=== PATIENT | male | born 1975 | race Caucasian/White ===

== ENCOUNTER 2016-09-29 16:42 | Emergency (ER) | END 2016-09-29 20:36 | disposition home or self-care (01) | DX: R10.9 Unspecified abdominal pain (principal); R11.10 Vomiting, unspecified; R19.7 Diarrhea, unspecified; F17.210 Nicotine dependence, cigarettes, uncomplicated | CPT/HCPCS: 74176; 80053; 80306; 81003; 83690; 85025; J1885; J2270; J2405; J7030 ==

== ENCOUNTER 2016-10-01 23:25 | Emergency (ER) | payer MEDICAID ==
[~2016-10-01] VITALS: Ht 177.8 cm; Wt 77.5 kg
[~2016-10-01 23:25] MED LIST: ONDA4TAB14 PO; PANT40TA3 PO
[2016-10-01 23:29] VITALS: Ht 177.8 cm; Wt 77.5 kg
[2016-10-02] MEDS ORDERED: ONDANSETRON 4 MG INJ IV STA (00:16)
[2016-10-02] MEDS ORDERED: morphine 4 MG/ML VIAL IV STA (00:16)
[2016-10-02] MEDS ORDERED: SOD CHLORIDE 0.9% 1,000 ML IV STA (00:16)
--- NOTE | 2016-10-02 00:40 | ERD ---
ER Documentation Chief Complaint Date/Time DATE: 10/02/16 TIME: 00:38 Chief Complaint periumbilical pain radaiting to back x 2 days HPI 41-year-old male presents to emergency department for complaints on periumbilical area into the back or 2 days, patient was seen here recently for the same problem. Patient describes the pain as sharp pain, 8/10 scale, radiates from periumbilical to flank area. Patient denies any nausea or vomiting. Patient denies any diarrhea. Patient denies hematuria or dysuria. Patient denies any fever or chills. ROS All systems reviewed and are negative except as per history of present illness. Medications Home Meds Active Scripts Ondansetron (Ondansetron Odt) 4 Mg Tab.rapdis, 4 MG PO Q8 Y for NAUSEA AND/OR VOMITING, #30 TAB Prov:GERSON AN NP 10/02/16 Phenazopyridine Hcl* (Pyridium*) 200 Mg Tab, 200 MG PO TID Y for URINARY PAIN, # 6 TAB Prov:GERSON AN NP 10/02/16 Hydrocodone/Acetaminophen ([place] 5-325 Tablet) 1 Each Tablet, 1 TAB PO Q6H Y for PAIN, #20 TAB Prov:GERSON AN NP 10/02/16 Ondansetron (Ondansetron Odt) 4 Mg Tab.rapdis, 4 MG PO Q6H Y for NAUSEA AND/OR VOMITING, #10 TAB Prov:TOSIN DIAZ MD 09/29/16 Pantoprazole* (Protonix*) 40 Mg Tablet., 40 MG PO DAILY, #20 TAB Prov:TOSIN DIAZ MD 09/29/16 Discontinued Reported Medications Omeprazole* (Omeprazole*) 20 Mg Capsule.dr, 20 MG PO DAILY, CAP 01/16/15 Discontinued Scripts Ondansetron (Ondansetron Odt) 4 Mg Tab.rapdis, 4 MG PO Q6H Y for NAUSEA AND/OR VOMITING, #10 TAB Prov:ALEX LERNER 08/11/16 Hydrocodone/Acetaminophen ([place] 10-325 Tablet) 1 Each Tablet, 1 TAB PO Q6H Y for PAIN, #7 TAB Prov:ALEX LERNER 08/11/16 Sucralfate* (Carafate*) 1 Gm Tab, 1 GM PO QID, #60 TAB Prov:ALEX LERNER 08/11/16 Ondansetron Hcl* (Zofran*) 4 Mg Tablet, 4 MG PO Q6H for NAUSEA AND/OR VOMITING, #10 TAB Prov:RIGO DANIEL NP 06/28/16 Famotidine* (Pepcid*) 20 Mg Tablet, 20 MG PO BID for 7 Days, TAB Prov:RIGO DANIEL NP 06/28/16 Ondansetron Hcl* (Zofran* ODT) 4 mg -ODT Tab.disper, 4 MG PO Q8 Y for NAUSEA AND /OR VOMITING, #30 TAB Prov:GERSON AN NP 05/16/15 Dicyclomine Hcl* (Bentyl*) 20 Mg Tablet, 20 MG PO QID, #20 TAB Prov:GERSON AN NP 05/16/15 Ondansetron Hcl* (Zofran* ODT) 4 mg -ODT Tab.disper, 4 MG PO Q6 Y for NAUSEA AND /OR VOMITING, #30 TAB Prov:RAY GARCIA MD 04/23/15 Hydrocodone Bit-Acetaminophen* ([place]*) 10-325 Mg Tablet, 1 TAB PO Q6 Y for PAIN , #7 TAB Prov:RAY GARCIA MD 04/23/15 Ibuprofen* (Motrin*) 600 Mg Tab, 600 MG PO Q6H Y for PAIN AND OR ELEVATED TEMP, #30 Prov:RAY GARCIA MD 04/23/15 Allergies Allergies: Coded Allergies: sulfamethoxazole (Verified Allergy, Mild, HIVES, 09/29/16) trimethoprim (Verified Allergy, Mild, HIVES, 09/29/16) PMhx/Soc History of Surgery: No Anesthesia Reaction: No Hx Neurological Disorder: No Hx Respiratory Disorders: No Hx Cardiac Disorders: No Hx Psychiatric Problems: No Hx Miscellaneous Medical Probl: Yes (GERD, ALCOHOL ABUSE) Hx Alcohol Use: Yes Hx Substance Use: No Hx Tobacco Use: Yes FmHx Family History: No coronary disease, No diabetes, No other Physical Exam Vitals Vital Signs Date Time Temp Pulse Resp B/P Pulse Ox O2 Delivery O2 Flow Rate FiO2 10/02/16 03:27 98.3 77 18 131/77 99 Room Air 10/01/16 23:29 98.3 108 20 157/80 100 Physical Exam GENERAL: The patient is well developed and appropriate for usual state of health, in no apparent distress. CHEST: Clear to auscultation bilaterally. There are no rales, wheezes or rhonchi. HEART: Regular rate and rhythm. No murmurs, clicks, rubs or gallops. No S3 or S4. ABDOMEN: Soft, nontender and nondistended. Good bowel sounds. No rebound or guarding. No gross peritonitis. No gross organomegaly or masses. No Rodriguez sign or McBurney point tenderness. BACK: No midline or flank tenderness. EXTREMITIES: Equal pulses bilaterally. There is no peripheral clubbing, cyanosis or edema. No focal swelling or erythema. Full range of motion. Grossly neurovascularly intact. NEURO: Alert and oriented. Cranial nerves 2-12 intact. Motor strength in all 4 extremities with 5/5 strength. Sensation grossly intact. Normal speech and gait. SKIN: There is no apparent rash or petechia. The skin is warm and dry. HEMATOLOGIC AND LYMPHATIC: There is no evidence of excessive bruising or lymphedema. No gross cervical, axillary, or inguinal lymphadenopathy. Result Diagram: 10/02/165410/02/16 0055 Results 24 hrs Laboratory Tests Test 10/02/16 00:55 Alanine Aminotransferase (ALT/SGPT) 30IU/L Albumin 4.2g/dl Albumin/Globulin Ratio 1.23 Alkaline Phosphatase 111IU/L Anion Gap 17 Aspartate Amino Transf (AST/SGOT) 25IU/L Basophils # 0.010^3/ul Basophils % 0.4% Blood Urea Nitrogen 3mg/dl Calcium Level 8.8mg/dl Carbon Dioxide Level 27mmol/L Chloride Level 101mmol/L Creatinine 0.65mg/dl Direct Bilirubin 0.00mg/dl Eosinophils # 0.310^3/ul Eosinophils % 3.6% Globulin 3.40g/dl Glucose Level 97mg/dl Hematocrit 43.9% Hemoglobin 15.1g/dl Indirect Bilirubin 0.7mg/dl Lipase 36U/L Lymphocytes # 3.110^3/ul Lymphocytes % 32.6% Mean Corpuscular Hemoglobin 30.6pg Mean Corpuscular Hemoglobin Concent 34.4g/dl Mean Corpuscular Volume 89.0fl Mean Platelet Volume 10.6fl Monocytes # 0.610^3/ul Monocytes % 6.8% Neutrophils # 5.310^3/ul Neutrophils % 56.3% Nucleated Red Blood Cells # 0.010^3/ul Nucleated Red Blood Cells % 0.0/100WBC Platelet Count 04239^3/UL Potassium Level 3.5mmol/L Red Blood Count 4.9310^6/ul Red Cell Distribution Width 12.0% Sodium Level 141mmol/L Total Bilirubin 0.7mg/dl Total Protein 7.6g/dl Urine Bilirubin NEGATIVE Urine Clarity CLEAR Urine Color LT. YELLOW Urine Glucose NEGATIVE% Urine Hemoglobin TRACE Urine Ketones NEGATIVE Urine Leukocyte Esterase NEGATIVE Urine Microscopic RBC 0-2/HPF Urine Microscopic WBC 0-2/HPF Urine Nitrite NEGATIVE Urine Specific [place] <=1.005 Urine Squamous Epithelial Cells OCCASIONAL Urine Total Protein NEGATIVE Urine Urobilinogen 0.2 E.U./dL Urine pH 6.0 White Blood Count 9.510^3/ul Current Medications Medications (Trade) Dose Ordered Sig/[place] Route PRN Reason Start Time Stop Time Status Last Admin Dose Admin Sodium Chloride (NS) 1,000 ml @ 1,000 mls/hr Q1H STAT IV 10/02/16 00:16 10/02/16 01:15 DC 10/02/16 01:12 Morphine Sulfate (morphine) 4 mg ONCE STAT IV 10/02/16 00:16 10/02/16 00:17 DC 10/02/16 01:12 Ondansetron HCl 4 mg 4 mg ONCE STAT IV 10/02/16 00:16 10/02/16 00:17 DC 10/02/16 01:12 Sodium Chloride (NS) 100 ml @ ud STK-MED ONCE .ROUTE 10/02/16 01:23 10/02/16 01:24 DC 10/02/16 01:39 Iohexol (Omnipaque 300mg/ ml) 150 ml STK-MED ONCE .ROUTE 10/02/16 01:23 10/02/16 01:24 DC 10/02/16 01:39 Ketorolac Tromethamine (Toradol) 30 mg ONCE STAT IV 10/02/16 02:38 10/02/16 02:39 DC 10/02/16 02:46 Patient was given medication for pain here in emergency department, after treatment, patient verbalized feeling much better. Patient's pain is improved.Patient was given Zofran here in the emergency department. After treatment, patient was able to tolerate po fluids here in the emergency department without any vomiting. There is no signs and symptoms of dehydration. Normal saline IV bolus was given here in emergency department for rehydration, patient tolerated IV fluids. PROCEDURE: CT ABDOMEN/PELVIS WITH CONTRAST CLINICAL INDICATION: 41-year-old male with abdominal pain. TECHNIQUE: The study was performed utilizing a GE [employer] VCT 64-slice CT scanner. Direct axial sections were obtained through the abdomen and pelvis with the use of 100 cc of Omnipaque-300 nonionic intravenous contrast material. Sagittal and coronal reformations were obtained. Automated exposure control and iterative reconstruction techniques were utilized for this examination. The images were reviewed on a PACS workstation. CTD/vol = 8.3 mGy; Total Exam DLP = 522.5 mGy-cm. COMPARISON: CT abdomen/pelvis September 29, 2016. FINDINGS: The lung bases are unremarkable. There is no evidence for significant pleural effusion. The liver has a normal size and contour without focal areas of abnormal density or contrast enhancement. No intrahepatic nor extrahepatic biliary ductal dilatation is seen. The gallbladder demonstrates no wall thickening nor pericholecystic fluid. No biliary stones are evident. The pancreas is without areas of abnormal attenuation or contrast enhancement. This spleen is identified and has a normal size without abnormal density or contrast enhancement. The adrenal glands are unremarkable. The kidneys are functional bilaterally without focal abnormal density. There is mild bilateral prominence of the renal collecting system with perinephric infiltration but without evidence for deepak obstructive uropathy or nephroureterolithiasis. The urinary bladder contains urine. There is a small umbilical hernia with an opening of 9 x 10 mm containing fat. There is no evidence for bowel obstruction. There are a few small diverticula within the sigmoid colon without surrounding inflammatory changes. The appendix is visualized and is without edema or surrounding inflammatory reaction. There is no significant free fluid. The aortoiliac vessels are without aneurysmal dilatation. The osseous structures are intact. IMPRESSION: 1. Mild prominence of the renal collecting system with perinephric infiltration but without deepak obstructive uropathy or nephroureterolithiasis. 2. No CT evidence for appendicitis. 3. Minimal sigmoid diverticulosis. .Raza Stack MD, MD Date Time Electronically viewed and signed by .Raza Stack MD, MD on 10/02/2016 02:26 .M/ CC: GERSON AN NP Procedures/MDM Medical Decision Making: Patient's flank pain abdominal pain nonspecific at this time, possibly passed a stone. There is low suspicion for abdominal emergencies at this time. Patients abdominal exam is normal at this time. Patients radiology exam does not show any abdominal emergencies at this time. There is low suspicion for appendicitis, cholecystitis, abdominal aortic aneurysms or peritonitis at this time. There is low suspicion for sepsis. Patient appears well and is hemodynamically stable. Disposition: Home. Condition: Stable Prescription [place], Zofran, Pyridium Instructions: Patient is advised to take medications as prescribed. Patient is advised to rest, increase fluid intake and do brat diet for next 1-2 days and progress as tolerated. Patient is advised that if symptoms are worse, severe abdominal pain, uncontrolled vomiting, high fever, severe flank pain, worst signs and symptoms, to return to the emergency department immediately. Otherwise, patient can follow up with primary care doctor in 5-7 days. Departure Diagnosis: Primary Impression: Abdominal pain Abdominal location: periumbilical Qualified Code: R10.33 - Periumbilical abdominal pain Condition: Stable Patient Instructions: Abdominal Pain Additional Instructions: Patient is advised to take medications as prescribed. Patient is advised to rest, increase fluid intake and do brat diet for next 1-2 days and progress as tolerated. Patient is advised that if symptoms are worse, severe abdominal pain , uncontrolled vomiting, high fever, severe flank pain, worst signs and symptoms , to return to the emergency department immediately. Otherwise, patient can follow up with primary care doctor in 5-7 days. GERSON AN NP Oct 02, 2016 00:40
[2016-10-02] MEDS ORDERED: IOHEXOL 300MG/ML 150 ML BTL ONE (01:23)
[2016-10-02] MEDS ORDERED: SOD CHLORIDE 0.9% 100 ML ONE (01:23)
[2016-10-02 01:25] LABS: ADD UMIC YES; URINE BILIRUBIN (Dip) NEGATIVE (NEGATIVE); URINE BLOOD (Dip) TRACE (NEGATIVE); URINE COLOR LT. YELLOW (YELLOW); URINE GLUCOSE (Dip) NEGATIVE (NEGATIVE); URINE KETONES (Dip) NEGATIVE (NEGATIVE); URINE LEUKOCYTE ESTERASE (Dip) NEGATIVE (NEGATIVE); URINE NITRITE (Dip) NEGATIVE (NEGATIVE); URINE UROBILINOGEN (Dip) 0.2 E.U./dL (0.1-1.0)
[2016-10-02 01:30] LABS: ALBUMIN 4.2 g/dl (3.3-4.9)
[2016-10-02 01:31] LABS: POTASSIUM 3.5 mmol/L (3.5-5.1)
[2016-10-02 01:33] LABS: ALBUMIN/GLOBULIN RATIO 1.23; BILIRUBIN,INDIRECT 0.7 mg/dl (0-1.1); BILIRUBIN,TOTAL 0.7 mg/dl (0.2-1.3); CREATININE 0.65 mg/dl (0.61-1.24); TOTAL PROTEIN 7.6 g/dl (6.1-8.1)
[2016-10-02 01:34] LABS: CALCIUM 8.8 mg/dl (8.4-10.2)
[2016-10-02 02:05] LABS: HEMATOCRIT 43.9 % (42.0-52.0); HEMOGLOBIN 15.1 g/dl (14.0-18.0); MEAN CORPUSCULAR HEMOGLOBIN 30.6 pg (29.0-33.0); MEAN CORPUSCULAR HGB CONC 34.4 g/dl (32.0-37.0); MEAN PLATELET VOLUME 10.6 fl (7.4-10.4); PLATELET COUNT 187 10^3/UL (140-440); RED BLOOD COUNT 4.93 10^6/ul (4.70-6.10); WHITE BLOOD COUNT 9.5 10^3/ul (4.8-10.8)
[2016-10-02 02:06] LABS: BASOPHILS % 0.4 % (0.0-2.0); EOSINOPHILS # 0.3 10^3/ul (0.0-0.5); EOSINOPHILS % 3.6 % (0.0-7.0); LYMPHOCYTES # 3.1 10^3/ul (0.8-2.9); LYMPHOCYTES % 32.6 % (15.0-51.0); MONOCYTE # 0.6 10^3/ul (0.3-0.9); MONOCYTES % 6.8 % (0.0-11.0); NEUTROPHIL # 5.3 10^3/ul (1.6-7.5); NEUTROPHILS % 56.3 % (39.0-77.0)
--- NOTE | 2016-10-02 02:27 | RADRPT ---
PROCEDURE: CT ABDOMEN/PELVIS WITH CONTRAST CLINICAL INDICATION: 41-year-old male with abdominal pain. TECHNIQUE: The study was performed utilizing a GE [employer] VCT 64-slice CT scanner. Direct axia l sections were obtained through the abdomen and pelvis with the use of 100 cc of Omnipaque-300 missy onic intravenous contrast material. Sagittal and coronal reformations were obtained. Automated expos ure control and iterative reconstruction techniques were utilized for this examination. The images were reviewed on a PACS workstation. CTD/vol = 8.3 mGy; Total Exam DLP = 522.5 mGy-cm. COMPARISON: CT abdomen/pelvis September 29, 2016. FINDINGS: The lung bases are unremarkable. There is no evidence for significant pleural effusion. The liver has a normal size and contour without focal areas of abnormal density or contrast enhancement. No in trahepatic nor extrahepatic biliary ductal dilatation is seen. The gallbladder demonstrates no wall thickening nor pericholecystic fluid. No biliary stones are evident. The pancreas is without areas o f abnormal attenuation or contrast enhancement. This spleen is identified and has a normal size wit hout abnormal density or contrast enhancement. The adrenal glands are unremarkable. The kidneys are functional bilaterally without focal abnormal density. There is mild bilateral prominence of the efren al collecting system with perinephric infiltration but without evidence for deepak obstructive uropat hy or nephroureterolithiasis. The urinary bladder contains urine. There is a small umbilical hernia with an opening of 9 x 10 mm containing fat. There is no evidence for bowel obstruction. There are a few small diverticula within the sigmoid colon without surrounding inflammatory changes. The appen rosi is visualized and is without edema or surrounding inflammatory reaction. There is no significant free fluid. The aortoiliac vessels are without aneurysmal dilatation. The osseous structures are i ntact. IMPRESSION: 1. Mild prominence of the renal collecting system with perinephric infiltration but without deepak o bstructive uropathy or nephroureterolithiasis. 2. No CT evidence for appendicitis. 3. Minimal sigmoid diverticulosis. .Raza Stack MD, Date Time Electronically viewed and signed by .Raza Stack MD, MD on 10/02/2016 02:26 .Yusuf
[2016-10-02 02:38] LABS: SQUAMOUS EPITHELIAL CELL,UR OCCASIONAL; URINE RBCS 0-2 /HPF (0); URINE TOTAL PROTEIN (Dip) NEGATIVE (NEGATIVE)
[2016-10-02] MEDS ORDERED: KETOROLAC 30 MG INJ IV STA (02:38)
[2016-10-02] MEDS ORDERED: ONDA4TAB14 PO (03:04)
[2016-10-02] MEDS ORDERED: HYDR-906 PO (03:04)
[2016-10-02] MEDS ORDERED: PHEN-538 PO (03:04)
[2016-10-02 03:27] VITALS: BP 131/77; PULSE 77; RESP 18; TEMP 98.3
== END 2016-10-02 03:28 | disposition home or self-care (01) ==
LOC: FTE 23:25
DX: R10.33 Periumbilical pain (principal)
CPT/HCPCS: 36415; 74177; 80053; 81001; 83690; 85025; 96374; 96375; J1885; J2270; J2405; J7030; Q9967; Z7502; Z7610; 81003

== ENCOUNTER 2016-10-04 18:08 | Emergency (ER) | payer MEDICAID ==
[~2016-10-04] VITALS: Ht 188 cm; Wt 76.0 kg
[~2016-10-04 18:08] MED LIST changes: +HYDR-906 PO; +PHEN-538 PO
[2016-10-04 18:10] VITALS: Ht 188 cm; Wt 76.0 kg
[2016-10-04] MEDS ORDERED: KETOROLAC 60 MG INJ IM STA (19:56)
[2016-10-04 20:27] LABS: BASOPHILS % 0.3 % (0.0-2.0); EOSINOPHILS # 0.1 10^3/ul (0.0-0.5); EOSINOPHILS % 1.6 % (0.0-7.0); HEMATOCRIT 43.5 % (42.0-52.0); HEMOGLOBIN 15.2 g/dl (14.0-18.0); LYMPHOCYTES # 1.8 10^3/ul (0.8-2.9); LYMPHOCYTES % 19.4 % (15.0-51.0); MEAN CORPUSCULAR HEMOGLOBIN 31.2 pg (29.0-33.0); MEAN CORPUSCULAR HGB CONC 34.9 g/dl (32.0-37.0); MEAN CORPUSCULAR VOLUME 89.3 fl (82.0-101.0); MEAN PLATELET VOLUME 8.7 fl (7.4-10.4); MONOCYTE # 0.5 10^3/ul (0.3-0.9); MONOCYTES % 5.1 % (0.0-11.0); NEUTROPHIL # 6.8 10^3/ul (1.6-7.5); NEUTROPHILS % 73.6 % (39.0-77.0); PLATELET COUNT 159 10^3/UL (140-440); RED BLOOD COUNT 4.87 10^6/ul (4.70-6.10); RED CELL DISTRIBUTION WIDTH 13.1 % (11.5-14.5); UNCORRECTED WBC 9.2 10^3/ul (4.8-10.8); WHITE BLOOD COUNT 9.2 10^3/ul (4.8-10.8)
[2016-10-04 20:28] LABS: CONDITION 1
[2016-10-04 20:39] LABS: ALBUMIN 3.7 g/dl (3.3-4.9)
[2016-10-04 20:40] LABS: POTASSIUM 3.8 mmol/L (3.5-5.1)
[2016-10-04 20:42] LABS: ALBUMIN/GLOBULIN RATIO 1.19; BILIRUBIN,INDIRECT 0.3 mg/dl (0-1.1); BILIRUBIN,TOTAL 0.3 mg/dl (0.2-1.3); CREATININE 1.18 mg/dl (0.61-1.24); TOTAL PROTEIN 6.8 g/dl (6.1-8.1)
[2016-10-04 20:43] LABS: CALCIUM 8.6 mg/dl (8.4-10.2)
[2016-10-04 21:06] LABS: ADD UMIC YES; URINE BILIRUBIN (Dip) NEGATIVE (NEGATIVE); URINE BLOOD (Dip) 2+ (NEGATIVE); URINE COLOR LT. YELLOW (YELLOW); URINE GLUCOSE (Dip) NEGATIVE (NEGATIVE); URINE KETONES (Dip) NEGATIVE (NEGATIVE); URINE LEUKOCYTE ESTERASE (Dip) NEGATIVE (NEGATIVE); URINE NITRITE (Dip) NEGATIVE (NEGATIVE); URINE TOTAL PROTEIN (Dip) 2+ (NEGATIVE); URINE UROBILINOGEN (Dip) 0.2 E.U./dL (0.1-1.0)
[2016-10-04 21:20] LABS: MUCUS,URINE FEW; SQUAMOUS EPITHELIAL CELL,UR FEW
--- NOTE | 2016-10-04 21:50 | RADRPT ---
PROCEDURE: Renal US. CLINICAL INDICATION: Flank pain. TECHNIQUE: Multiple sonographic images of the kidneys were obtained. COMPARISON: No prior studies are submitted for comparison. FINDINGS: The right kidney measures 11.2 x 4.4 x 6.1 cm. There is preservation of corticomedullary differentia tion. No shadowing renal calculus is identified. There is no evidence of hydronephrosis. The left kidney measures 13 x 6.8 x 5.4 cm. There is preservation of corticomedullary differentiatio n. No shadowing renal calculus is identified. There is no evidence of hydronephrosis. The bladder is fluid-filled. The visualized aorta is within normal limits. The visualized portions of the IVC are within normal l imits. IMPRESSION: No evidence of shadowing renal calculi or hydronephrosis. RPTAT: HIKT .Brent Espinoza MD, Date Time Electronically viewed and signed by .Brent Espinoza MD, on 10/04/2016 21:49 .T/
[2016-10-04] MEDS ORDERED: IBUP800T25 PO (22:07)
[2016-10-04 22:18] VITALS: BP 133/67; PULSE 89; RESP 18
--- NOTE | 2016-10-05 03:35 | ERD ---
ER Documentation Chief Complaint Date/Time DATE: 10/05/16 TIME: 03:27 Chief Complaint RLQ ab pain radiating to the R flank all day today HPI 41-year-old male complaining of bilateral flank pain and mid abdominal pain. He reports nausea and dysuria. This is the third time patient is seen here in the last 5 days for the same complaints. Denies fever or chills. Denies hematuria. Denies vomiting or diarrhea. ROS All systems reviewed and are negative except as per history of present illness. Medications Home Meds Active Scripts Ibuprofen* (Motrin*) 800 Mg Tab, 800 MG PO Q6H Y for PAIN AND OR ELEVATED TEMP, #30 TAB Prov:MCKENZIE HARDEN CATERERS HELPER 10/04/16 Ondansetron (Ondansetron Odt) 4 Mg Tab.rapdis, 4 MG PO Q8 Y for NAUSEA AND/OR VOMITING, #30 TAB Prov:GERSON AN CATERERS HELPER 10/02/16 Phenazopyridine Hcl* (Pyridium*) 200 Mg Tab, 200 MG PO TID Y for URINARY PAIN, # 6 TAB Prov:GERSON AN CATERERS HELPER 10/02/16 Hydrocodone/Acetaminophen ([place] 5-325 Tablet) 1 Each Tablet, 1 TAB PO Q6H Y for PAIN, #20 TAB Prov:GERSON AN CATERERS HELPER 10/02/16 Ondansetron (Ondansetron Odt) 4 Mg Tab.rapdis, 4 MG PO Q6H Y for NAUSEA AND/OR VOMITING, #10 TAB Prov:TOSIN DIAZ MD 09/29/16 Pantoprazole* (Protonix*) 40 Mg Tablet., 40 MG PO DAILY, #20 TAB Prov:TOSIN DIAZ MD 09/29/16 Discontinued Reported Medications Omeprazole* (Omeprazole*) 20 Mg Capsule., 20 MG PO DAILY, CAP 01/16/15 Discontinued Scripts Ondansetron (Ondansetron Odt) 4 Mg Tab.rapdis, 4 MG PO Q6H Y for NAUSEA AND/OR VOMITING, #10 TAB Prov:ALEX LERNER 08/11/16 Hydrocodone/Acetaminophen ([place] 10-325 Tablet) 1 Each Tablet, 1 TAB PO Q6H Y for PAIN, #7 TAB Prov:ALEX LERNER Nallely 08/11/16 Sucralfate* (Carafate*) 1 Gm Tab, 1 GM PO QID, #60 TAB Prov:ALEX LERNERCristino 08/11/16 Ondansetron Hcl* (Zofran*) 4 Mg Tablet, 4 MG PO Q6H for NAUSEA AND/OR VOMITING, #10 TAB Prov:IRGO DANIEL NP 06/28/16 Famotidine* (Pepcid*) 20 Mg Tablet, 20 MG PO BID for 7 Days, TAB Prov:RIGO DANIEL NP 06/28/16 Ondansetron Hcl* (Zofran* ODT) 4 mg -ODT Tab.disper, 4 MG PO Q8 Y for NAUSEA AND /OR VOMITING, #30 TAB Prov:GERSON AN NP 05/16/15 Dicyclomine Hcl* (Bentyl*) 20 Mg Tablet, 20 MG PO QID, #20 TAB Prov:GERSON AN NP 05/16/15 Ondansetron Hcl* (Zofran* ODT) 4 mg -ODT Tab.disper, 4 MG PO Q6 Y for NAUSEA AND /OR VOMITING, #30 TAB Prov:RAY GARCIA MD 04/23/15 Hydrocodone Bit-Acetaminophen* ([place]*) 10-325 Mg Tablet, 1 TAB PO Q6 Y for PAIN , #7 TAB Prov:RAY GARCIA MD 04/23/15 Ibuprofen* (Motrin*) 600 Mg Tab, 600 MG PO Q6H Y for PAIN AND OR ELEVATED TEMP, #30 Prov:RAY GARCIA MD 04/23/15 Allergies Allergies: Coded Allergies: sulfamethoxazole (Verified Allergy, Mild, HIVES, 09/29/16) trimethoprim (Verified Allergy, Mild, HIVES, 09/29/16) PMhx/Soc History of Surgery: No Anesthesia Reaction: No Hx Neurological Disorder: No Hx Respiratory Disorders: No Hx Cardiac Disorders: No Hx Psychiatric Problems: No Hx Miscellaneous Medical Probl: Yes (GERD, ALCOHOL ABUSE) Hx Alcohol Use: Yes (socially) Hx Substance Use: No Hx Tobacco Use: Yes Smoking Status: Current every day smoker Physical Exam Vitals Vital Signs Date Time Temp Pulse Resp B/P Pulse Ox O2 Delivery O2 Flow Rate FiO2 10/04/16 22:18 89 18 133/67 99 Room Air 10/04/16 18:10 99.3 92 18 132/82 99 Physical Exam General impression: Well-developed, well-nourished. Alert, oriented, in no acute distress Head: Normocephalic, atraumatic. Respiration: Normal respiratory effort. Lungs clear to auscultate bilaterally. No wheezes, rales or rhonchi. Cardiovascular: Regular rate and rhythm. No murmurs or extra heart sounds. Abdomen: Abdomen normal to inspection. Nontender. No masses or organomegaly. Bowel sounds normal. Back: Normal to inspection. No midline spine tenderness. Bilateral CVA tenderness, with left worse than right. Neuro: Mental status normal, speech normal. Skin: Normal turgor. No rash or lesions. Psych: Normal mood and affect. Result Diagram: 10/04/16201410/04/162014 Results 24 hrs Laboratory Tests Test 10/04/16 20:15 10/04/16 20:40 Alanine Aminotransferase (ALT/SGPT) 27IU/L Albumin 3.7g/dl Albumin/Globulin Ratio 1.19 Alkaline Phosphatase 86IU/L Anion Gap 19 Aspartate Amino Transf (AST/SGOT) 26IU/L Basophils # 0.010^3/ul Basophils % 0.3% Blood Urea Nitrogen 11mg/dl Calcium Level 8.6mg/dl Carbon Dioxide Level 28mmol/L Chloride Level 100mmol/L Creatinine 1.18mg/dl Direct Bilirubin 0.00mg/dl Eosinophils # 0.110^3/ul Eosinophils % 1.6% Globulin 3.10g/dl Glucose Level 160mg/dl Hematocrit 43.5% Hemoglobin 15.2g/dl Indirect Bilirubin 0.3mg/dl Lymphocytes # 1.810^3/ul Lymphocytes % 19.4% Mean Corpuscular Hemoglobin 31.2pg Mean Corpuscular Hemoglobin Concent 34.9g/dl Mean Corpuscular Volume 89.3fl Mean Platelet Volume 8.7fl Monocytes # 0.510^3/ul Monocytes % 5.1% Neutrophils # 6.810^3/ul Neutrophils % 73.6% Nucleated Red Blood Cells # 0.010^3/ul Nucleated Red Blood Cells % 0.0/100WBC Platelet Count 00851^3/UL Potassium Level 3.8mmol/L Red Blood Count 4.8710^6/ul Red Cell Distribution Width 13.1% Sodium Level 143mmol/L Total Bilirubin 0.3mg/dl Total Protein 6.8g/dl White Blood Count 9.210^3/ul Urine Bilirubin NEGATIVE Urine Clarity CLEAR Urine Color LT. YELLOW Urine Glucose NEGATIVE% Urine Hemoglobin 2+ Urine Ketones NEGATIVE Urine Leukocyte Esterase NEGATIVE Urine Microscopic RBC 2-5/HPF Urine Microscopic WBC 2-5/HPF Urine Mucus FEW Urine Nitrite NEGATIVE Urine Specific [place] 1.020 Urine Squamous Epithelial Cells FEW Urine Total Protein 2+ Urine Urobilinogen 0.2 E.U./dL Urine pH 5.5 Current Medications Medications (Trade) Dose Ordered Sig/[place] Route PRN Reason Start Time Stop Time Status Last Admin Dose Admin Ketorolac Tromethamine (Toradol) 60 mg ONCE STAT IM 10/04/16 19:56 10/04/16 20:00 DC 10/04/16 20:05 Procedures/MDM Well-appearing 41-year-old male presents to ED with bilateral flank pain and mid abdominal pain. He CBC and CMP are unremarkable, as were his 2 previous visits. UA showed 2+ hemoglobin and 2+ protein, otherwise negative. He has received abdominal and pelvic CT and both of his previous visits. CT showed sigmoid diverticulosis without diverticulitis, no evidence of acute appendicitis. The CT on 10/02/2016 also showed mild prominence of the renal collecting system with perinephric infiltration but without deepak obstruction uropathy or nephroureterolithiasis. Since he has out taking 2 CT scans in the last 5 days, I do not feel additional CT scan is indicated today. Renal ultrasound was obtained today which show no evidence of shadowing renal calculi or hydronephrosis. The cause of his flank pain and abdominal pain is uncertain at this time. He does not have urinary tract infection. Low suspicion for acute appendicitis, cholecystitis, or bowel obstruction. I think most likely explanation of his pain is nonobstructing urolithiasis with colic. Patient was given Toradol IM in the ED for pain. Patient advised to follow-up with his PCP for urology referral. Patient appears well, stable for discharge and outpatient management. Medical decision making shared with patient and family. Education provided to patient and family. Patient and family expressed understanding of the plan. Medications on discharge: Ibuprofen. Follow-up: Primary care provider in 2-3 days or return to ED if worse. Departure Diagnosis: Primary Impression: Flank pain Additional Impression: Abdominal pain Condition: Stable Patient Instructions: Kidney Stone W/ Colic [facility] Usted se wiseman hecho un examen mdico de control que le indica que no est en salvador condicin que requiera tratamiento urgente en el Departamento de Emergencia. Un estudio ms profundo y el tratamiento de barrow condicin pueden esperar sin ningn riesgo hasta que usted sea atendida/o en el consultorio de barrow mdico o salvador cl mary. Es responsabilidad suya arreglar salvador dylan para el seguimiento del gage. MANEJO DE CONDICIONES NO URGENTES EN EL FUTURO 1) Si usted tiene un mdico de atencin primaria: Usted debera llamar a barrow mdico de atencin primaria antes de venir al departamento de emergencia. Despus de las horas de consultorio, barrow doctor o barrow asociado/a est disponible por telfono. El mdico o enfermero de jessica en el servicio telefnico puede asesorarle por sydnie medio para atender el problema, o gage contrario se puede programar salvador dylan. 2) Si usted no tiene un mdico de atencin primaria: Llame al mdico o clnica de referencia que aparece abajo petr las horas de consultorio para hacer salvador dylan para que le vean. CLINICAS: [facility] [phone] [facility] [phone] [facility] [phone] [address] [facility]. [facility] [phone] [facility]. [place] [phone] [facility]. [phone] [address] Additional Instructions: Llame al doctor MAANA y domitila savlador DYLAN PARA DENTRO DE 2-3 OLVERA.Dgale a la secretaria que nosotros le instruimos hacer esta dylan.Avise o llame si barrow condicin se empeora antes de la dylan. Regresa aqui si peor o no mejor. MCKENZIE HARDEN. KAILYN Oct 05, 2016 03:35
== END 2016-10-04 22:19 | disposition home or self-care (01) ==
LOC: FTE 18:08
DX: R10.31 Right lower quadrant pain (principal); F17.210 Nicotine dependence, cigarettes, uncomplicated
CPT/HCPCS: 36415; 76775; 80053; 81001; 85025; 96372; J1885; Z7502; 81003

== ENCOUNTER 2016-12-01 15:23 | Emergency (ER) | payer MEDICAID ==
[~2016-12-01] VITALS: Wt 75.5 kg
[~2016-12-01 15:23] MED LIST changes: +IBUP800T25 PO
--- NOTE | 2016-12-01 16:03 | ERA ---
ER Documentation Chief Complaint Date/Time DATE: 12/01/16 TIME: 16:03 Chief Complaint LEFT CHEST PAIN ONSET THIS MORNING NO DISTRESS. NO SOB. HPI The patient is a 41-year-old male, presenting to the ER because of sternal chest pain that began about 3 PM, 03/16, he had similar symptoms previously. The chest pain is without any radiation. He denies fever, chills, neck pain, chest pain with exertion or vomiting or diaphoresis. He denies abdominal pain, nausea, vomiting, dysuria, diarrhea. He denies smoking, drinking or using illicit drug Past medical/surgical history: None ROS All systems reviewed and are negative except as per history of present illness. Medications Home Meds Active Scripts Lorazepam* (Ativan*) 0.5 Mg Tablet, 0.5 MG PO Q8 Y for ANXIETY, #6 TAB Prov:TOSIN DIAZ MD 12/01/16 Ondansetron (Ondansetron Odt) 4 Mg Tab.rapdis, 4 MG PO Q6H Y for NAUSEA AND/OR VOMITING, #10 TAB Prov:TOSIN DIAZ MD 12/01/16 Discontinued Scripts Ibuprofen* (Motrin*) 800 Mg Tab, 800 MG PO Q6H Y for PAIN AND OR ELEVATED TEMP, #30 TAB Prov:MCKENZIE HARDEN NP 10/04/16 Ondansetron (Ondansetron Odt) 4 Mg Tab.rapdis, 4 MG PO Q8 Y for NAUSEA AND/OR VOMITING, #30 TAB Prov:GERSON AN NP 10/02/16 Phenazopyridine Hcl* (Pyridium*) 200 Mg Tab, 200 MG PO TID Y for URINARY PAIN, # 6 TAB Prov:GERSON AN NP 10/02/16 Hydrocodone/Acetaminophen (Divernon 5-325 Tablet) 1 Each Tablet, 1 TAB PO Q6H Y for PAIN, #20 TAB Prov:GERSON AN NP 10/02/16 Ondansetron (Ondansetron Odt) 4 Mg Tab.rapdis, 4 MG PO Q6H Y for NAUSEA AND/OR VOMITING, #10 TAB Prov:TOSIN DIAZ MD 09/29/16 Pantoprazole* (Protonix*) 40 Mg Tablet.dr, 40 MG PO DAILY, #20 TAB Prov:TOSIN DIAZ MD 09/29/16 Allergies Allergies: Coded Allergies: sulfamethoxazole (Verified Allergy, Mild, HIVES, 12/01/16) trimethoprim (Verified Allergy, Mild, HIVES, 12/01/16) PMhx/Soc History of Surgery: No Anesthesia Reaction: No Hx Neurological Disorder: No Hx Respiratory Disorders: No Hx Cardiac Disorders: No Hx Psychiatric Problems: No Hx Miscellaneous Medical Probl: Yes (GERD, ALCOHOL ABUSE) Hx Alcohol Use: Yes (socially) Hx Substance Use: No Hx Tobacco Use: Yes Physical Exam Vitals Vital Signs Date Time Temp Pulse Resp B/P Pulse Ox O2 Delivery O2 Flow Rate FiO2 12/01/16 17:56 98.4 113 20 119/86 96 Room Air 12/01/16 15:53 98.0 149 20 131/89 99 Physical Exam Const: No acute distress. Head: Atraumatic. Eyes: Normal Conjunctiva. ENT: Normal External Ears, Nose and Mouth. Neck: Full range of motion. No meningismus. Resp: Clear to auscultation bilaterally. Cardio: Regular tachycardic Abd: Soft, non distended, normal bowel sounds, non tender. Skin: No petechiae or rashes. Back: No midline or flank tenderness. Ext: No cyanosis, or edema. Neur: Awake and alert. No focal deficit Psych: Normal Mood and Affect. Result Diagram: 12/01/16 1616 12/01/16 1616 Results 24 hrs Laboratory Tests Test 12/01/16 16:16 12/01/16 16:24 12/01/16 16:45 White Blood Count 7.810^3/ul Red Blood Count 5.5210^6/ul Hemoglobin 16.6g/dl Hematocrit 48.4% Mean Corpuscular Volume 87.7fl Mean Corpuscular Hemoglobin 30.1pg Mean Corpuscular Hemoglobin Concent 34.3g/dl Red Cell Distribution Width 12.7% Platelet Count 90446^3/UL Mean Platelet Volume 9.9fl Neutrophils % 50.8% Lymphocytes % 42.2% Monocytes % 5.0% Eosinophils % 0.8% Basophils % 0.9% Nucleated Red Blood Cells % 0.0/100WBC Neutrophils # 4.010^3/ul Lymphocytes # 3.310^3/ul Monocytes # 0.410^3/ul Eosinophils # 0.110^3/ul Basophils # 0.110^3/ul Nucleated Red Blood Cells # 0.010^3/ul Prothrombin Time 12.3Sec Prothrombin Time Ratio 1.0 INR International Normalized Ratio 0.91 Activated Partial Thromboplast Time 26.1Sec Sodium Level 138mmol/L Potassium Level 3.6mmol/L Chloride Level 98mmol/L Carbon Dioxide Level 24mmol/L Anion Gap 20 Blood Urea Nitrogen 7mg/dl Creatinine 0.67mg/dl Glucose Level 115mg/dl Calcium Level 9.0mg/dl Troponin I < 0.012ng/ml Thyroid Stimulating Hormone (TSH) 1.250MIU/L Urine Opiates Screen Negative Urine Barbiturates Negative Urine Amphetamines Screen Negative Urine Benzodiazepines Screen Negative Urine Cocaine Screen Negative Urine Cannabinoids Negative Ethyl Alcohol Level 157.0mg/dl Current Medications Medications (Trade) Dose Ordered Sig/Lourdes Route PRN Reason Start Time Stop Time Status Last Admin Dose Admin Aspirin (Aspirin) 325 mg ONCE ONCE PO 12/01/16 17:00 12/01/16 17:01 DC 12/01/16 17:14 Nitroglycerin (Nitroglycerin 2% Oint) 1 inch ONCE ONCE TD 12/01/16 17:00 12/01/16 17:01 DC 12/01/16 16:43 Ondansetron HCl (Zofran Odt) 4 mg ONCE STAT ODT 12/01/16 16:53 12/01/16 16:54 DC 12/01/16 17:14 Lorazepam 1 mg 1 mg ONCE ONCE IV 12/01/16 18:00 12/01/16 18:01 DC 12/01/16 17:49 Sodium Chloride (NS) 1,000 ml @ 1,000 mls/hr Q1H ONCE IV 12/01/16 18:00 12/01/16 18:59 12/01/16 18:19 Ketorolac Tromethamine (Toradol) 30 mg ONCE STAT IV 12/01/16 17:55 12/01/16 17:57 DC 12/01/16 18:19 Acetaminophen/ Hydrocodone Bitart (Divernon (10/325)) 1 tab ONCE ONCE PO 12/01/16 19:00 12/01/16 19:01 Procedures/[place] [id number] Rad[address] Main Line: [phone] DIAGNOSTIC IMAGING REPORT Patient: LAURITA HOLLAND : 1975 Age: 41 Sex: M MR #: [id number] DOS: 12/01/16 1603 Ordering MD: TOSIN DIAZ MD Location: E/R Room/Bed: PROCEDURE: XR Chest. CLINICAL INDICATION: Chest pain. TECHNIQUE: Single frontal view of the chest was obtained COMPARISON: Chest x-ray 01/16/2015. FINDINGS: The soft tissues are normal. There are degenerative osteophytes in the thoracic spine. The the heart, cardiomediastinal silhouette and hilar structures are normal. The pulmonary vasculature is normal. There is a left- sided aorta. The lungs are clear. The costophrenic angles are normal. IMPRESSION: 1. There is no evidence of active cardiopulmonary disease. stable chest compared to 01/16/2015. RPTAT:AAJJ Physician [place] Date Time Electronically viewed and signed by Catracho Rodgers Physician on 12/01/2016 17:14 JM/ CC: TOSIN DIAZ MD EKG: Read by emergency physician at 3:58 PM Rate/Rhythm: Sinus tachycardia 140 beats/min QRS, ST, T-waves: No ST elevation, no T inversion, RWA Impression: Abnormal EKG EKG: Read by emergency physician at 4:36 PM Rate/Rhythm: Sinus tachycardia 122 beats/min QRS, ST, T-waves: No ST elevation, no T inversion, RWA Impression: Abnormal EKG MEDICAL MAKING DECISION: The patient is a 41-year-old male, presenting with acute sternal chest, most likely is due to alcohol induced gastritis. He was treated with aspirin 325 mg and 1 inch of nitroglycerin upon arrival to the ER because he denies drinking. He later was treated with Zofran ODT for nausea, Ativan 1 mg IV for acute anxiety, 1 L normal saline for acute dehydration, Toradol 30 mg IV and Divernon 10 mg p.o. for chest discomfort with good response. The differential diagnoses considered include but are not limited to Aditi- Edwards tear, pancreatitis, esophagitis, acute coronary syndrome, acute myocardial infarction, pericarditis, pulmonary embolism, aortic dissection, pneumonia, pleural effusion, pneumothorax, GERD, chest wall pain. Departure Diagnosis: Primary Impression: Chest pain Additional Impression: Alcohol abuse Condition: Good Comments He was discharged with Zofran and Ativan I discussed the findings with the patient. I advised the patient to follow-up with the primary physician in about 1-2 days, sooner if needed and return if any concern. The patient's blood pressure was elevated (>120/80) but appears stable without evidence of hypertension emergency or urgency. The patient was counseled about the risks of hypertension and urged to pursue outpatient monitoring and therapy within a week with their primary care physician. TOSIN DIAZ MD Dec 01, 2016 16:03
[2016-12-01 16:26] LABS: ADD SCAN DIFF NO
[2016-12-01 16:28] LABS: BASOPHIL # 0.1 10^3/ul (0.0-0.1); BASOPHILS % 0.9 % (0.0-2.0); EOSINOPHILS # 0.1 10^3/ul (0.0-0.5); EOSINOPHILS % 0.8 % (0.0-7.0); HEMATOCRIT 48.4 % (42.0-52.0); HEMOGLOBIN 16.6 g/dl (14.0-18.0); LYMPHOCYTES # 3.3 10^3/ul (0.8-2.9); LYMPHOCYTES % 42.2 % (15.0-51.0); MEAN CORPUSCULAR HEMOGLOBIN 30.1 pg (29.0-33.0); MEAN CORPUSCULAR HGB CONC 34.3 g/dl (32.0-37.0); MEAN CORPUSCULAR VOLUME 87.7 fl (82.0-101.0); MEAN PLATELET VOLUME 9.9 fl (7.4-10.4); MONOCYTE # 0.4 10^3/ul (0.3-0.9); NEUTROPHILS % 50.8 % (39.0-77.0); PLATELET COUNT 300 10^3/UL (140-415); RED BLOOD COUNT 5.52 10^6/ul (4.70-6.10); RED CELL DISTRIBUTION WIDTH 12.7 % (11.5-14.5); WHITE BLOOD COUNT 7.8 10^3/ul (4.8-10.8)
[2016-12-01] MEDS: ASPIRIN 325 MG TAB PO ONE ×3 (16:42→17:14)
[2016-12-01 16:43] LABS: INR 0.91; PROTIME 12.3 Sec (12.2-14.2)
[2016-12-01 16:44] LABS: PARTIAL THROMBOPLASTIN TIME 26.1 Sec (25.0-35.0)
[2016-12-01 16:45] LABS: CHLORIDE 98 mmol/L (97-110); POTASSIUM 3.6 mmol/L (3.5-5.1); SODIUM 138 mmol/L (135-144)
[2016-12-01 16:48] LABS: ANION GAP 20 (8-16); CARBON DIOXIDE 24 mmol/L (21-31); CREATININE 0.67 mg/dl (0.61-1.24)
[2016-12-01 16:49] LABS: BLOOD UREA NITROGEN 7 mg/dl (7-20); GLUCOSE 115 mg/dl (70-220)
[2016-12-01] MEDS ORDERED: ONDANSETRON (ODT) 4 MG TAB ODT STA (16:53)
[2016-12-01] MEDS ORDERED: NITROGLYCERIN 2% 1 GM OINT PKT TD ONE (17:00)
[2016-12-01 17:01] LABS: TROPONIN-I < 0.012 ng/ml (0.00-0.12)
[2016-12-01 17:02] LABS: BARBITURATES Negative (NEGATIVE); BENZODIAZEPINES Negative (NEGATIVE); CANNABINOIDS Negative (NEGATIVE); COCAINE Negative (NEGATIVE); OPIATES Negative (NEGATIVE)
--- NOTE | 2016-12-01 17:15 | RADRPT ---
PROCEDURE: XR Chest. CLINICAL INDICATION: Chest pain. TECHNIQUE: Single frontal view of the chest was obtained COMPARISON: Chest x-ray 01/16/2015. FINDINGS: The soft tissues are normal. There are degenerative osteophytes in the thoracic spine. The the hea rt, cardiomediastinal silhouette and hilar structures are normal. The pulmonary vasculature is chu l. There is a left-sided aorta. The lungs are clear. The costophrenic angles are normal. IMPRESSION: 1. There is no evidence of active cardiopulmonary disease. stable chest compared to 01/16/2015. RPTAT:AAJJ Physician [place] Date Time Electronically viewed and signed by Catracho Rodgers Physician on 12/01/2016 17:14 /
[2016-12-01] MEDS ORDERED: ONDA4TAB14 PO (17:50)
[2016-12-01] MEDS ORDERED: LORA-441 PO (17:51)
[2016-12-01] MEDS ORDERED: KETOROLAC 30 MG INJ IV STA (17:55)
[2016-12-01 17:56] VITALS: BP 119/86; PULSE 113; RESP 20; TEMP 98.4
[2016-12-01] MEDS ORDERED: LORAZEPAM 2 MG INJ IV ONE (18:00)
[2016-12-01] MEDS ORDERED: SOD CHLORIDE 0.9% 1,000 ML IV ONE (18:00)
[2016-12-01] MEDS ORDERED: HYDROCODONE/APAP (10/325) TAB PO ONE (19:00)
== END 2016-12-01 19:26 | disposition home or self-care (01) ==
LOC: E/R 15:23
DX: R07.2 Precordial pain (principal); R40.2252 Coma scale, best verbal response, oriented, at arrival to emergency department; F10.10 Alcohol abuse, uncomplicated; F17.210 Nicotine dependence, cigarettes, uncomplicated; R40.2142 Coma scale, eyes open, spontaneous, at arrival to emergency department; R40.2362 Coma scale, best motor response, obeys commands, at arrival to emergency department; R07.9 Chest pain, unspecified
CPT/HCPCS: 71010; 80048; 80306; 80307; 84443; 84484; 85025; 85610; 85730; 93005; J1885; J2060; J7030; Z7610; 36415; 96361; 96374; 96375

== ENCOUNTER 2017-01-29 10:33 | Emergency (ER) | payer MEDICAID ==
[~2017-01-29] VITALS: Ht 180.3 cm; Wt 72.5 kg
[~2017-01-29 10:33] MED LIST changes: -HYDR-906 PO; -IBUP800T25 PO; +LORA-441 PO; -PANT40TA3 PO; -PHEN-538 PO
[2017-01-29 10:37] VITALS: Ht 180.3 cm; Wt 72.5 kg
[2017-01-29] MEDS ORDERED: ONDANSETRON 4 MG INJ IV STA (11:09)
[2017-01-29] MEDS ORDERED: SOD CHLORIDE 0.9% 1,000 ML IV STA (11:09)
[2017-01-29 11:21] LABS: ADD SCAN DIFF NO
[2017-01-29 11:28] LABS: BASOPHIL # 0.1 10^3/ul (0.0-0.1); BASOPHILS % 0.7 % (0.0-2.0); EOSINOPHILS % 0.1 % (0.0-7.0); HEMATOCRIT 47.9 % (42.0-52.0); HEMOGLOBIN 16.6 g/dl (14.0-18.0); LYMPHOCYTES # 1.6 10^3/ul (0.8-2.9); LYMPHOCYTES % 24.2 % (15.0-51.0); MEAN CORPUSCULAR HEMOGLOBIN 30.6 pg (29.0-33.0); MEAN CORPUSCULAR HGB CONC 34.7 g/dl (32.0-37.0); MEAN CORPUSCULAR VOLUME 88.2 fl (82.0-101.0); MONOCYTE # 0.5 10^3/ul (0.3-0.9); MONOCYTES % 6.9 % (0.0-11.0); NEUTROPHIL # 4.6 10^3/ul (1.6-7.5); NEUTROPHILS % 67.8 % (39.0-77.0); PLATELET COUNT 214 10^3/UL (140-415); RED BLOOD COUNT 5.43 10^6/ul (4.70-6.10); RED CELL DISTRIBUTION WIDTH 12.1 % (11.5-14.5); WHITE BLOOD COUNT 6.8 10^3/ul (4.8-10.8)
[2017-01-29] MEDS ORDERED: FOLIC ACID 1 MG TAB PO ONE (11:30)
[2017-01-29] MEDS ORDERED: FAMOTIDINE 20 MG INJ IV ONE (11:30)
[2017-01-29] MEDS ORDERED: LORAZEPAM 2 MG INJ IV ONE (11:30)
[2017-01-29] MEDS ORDERED: THIAMINE 100 MG TAB PO ONE (11:30)
[2017-01-29 11:41] LABS: ALBUMIN 4.7 g/dl (3.3-4.9); POTASSIUM 3.8 mmol/L (3.5-5.1)
[2017-01-29 11:43] LABS: BILIRUBIN,INDIRECT 0.6 mg/dl (0-1.1); BILIRUBIN,TOTAL 0.6 mg/dl (0.2-1.3); CREATININE 0.68 mg/dl (0.61-1.24)
[2017-01-29 11:44] LABS: ALBUMIN/GLOBULIN RATIO 1.34; CALCIUM 8.8 mg/dl (8.4-10.2); TOTAL PROTEIN 8.2 g/dl (6.1-8.1)
[2017-01-29 11:49] LABS: INR 0.99; PARTIAL THROMBOPLASTIN TIME 24.4 Sec (25.0-35.0); PROTIME 13.1 Sec (12.2-14.2)
[2017-01-29] MEDS ORDERED: ONDA4TAB14 PO (12:24)
[2017-01-29] MEDS ORDERED: DEXTROSE 5%-0.45% NACL 500 ML BAG IV ONE (12:30)
--- NOTE | 2017-01-29 12:32 | ERA ---
ER Documentation Chief Complaint Date/Time DATE: 01/29/17 TIME: 12:28 Chief Complaint NAUSEA /VOMITING , EPIGASRIC PAIN X 5 DAYS HPI 41-year-old male who presents the emergency room with nausea and vomiting, epigastric abdominal pain for several days. The patient states that he has been drinking heavily his last drink was yesterday evening. The patient denies any hematemesis or melena. He denies any fevers or chills, no fall or head injury. Symptoms are moderate at this time. ROS All systems reviewed and are negative except as per history of present illness. Medications Home Meds Active Scripts Ondansetron (Ondansetron Odt) 4 Mg Tab.rapdis, 4 MG PO Q6H Y for NAUSEA AND/OR VOMITING, #10 TAB Prov:PEDRO PABLO LEBRON MD 01/29/17 Discontinued Scripts Lorazepam* (Ativan*) 0.5 Mg Tablet, 0.5 MG PO Q8 Y for ANXIETY, #6 TAB Prov:TOSIN DIAZ MD 12/01/16 Ondansetron (Ondansetron Odt) 4 Mg Tab.rapdis, 4 MG PO Q6H Y for NAUSEA AND/OR VOMITING, #10 TAB Prov:TOSIN DIAZ MD 12/01/16 Allergies Allergies: Coded Allergies: sulfamethoxazole (Verified Allergy, Mild, HIVES, 01/29/17) trimethoprim (Verified Allergy, Mild, HIVES, 01/29/17) PMhx/Soc History of Surgery: No Anesthesia Reaction: No Hx Neurological Disorder: No Hx Respiratory Disorders: No Hx Cardiac Disorders: No Hx Psychiatric Problems: No Hx Miscellaneous Medical Probl: Yes (GERD, ALCOHOL ABUSE) Hx Alcohol Use: Yes (alcoholic) Hx Substance Use: No Hx Tobacco Use: Yes (10 cig/ day) Smoking Status: Former smoker FmHx Family History: No diabetes Physical Exam Vitals Vital Signs Date Time Temp Pulse Resp B/P Pulse Ox O2 Delivery O2 Flow Rate FiO2 01/29/17 10:37 98.4 132 18 145/97 98 Physical Exam General: Thin male with slight tremor Head: Normocephalic, atraumatic. Eyes: Pupils equally reactive, EOM intact ENT: Moist mucous membranes Neck: Supple, no lymphadenopathy Respiratory: Lungs clear bilaterally, no distress Cardiovascular: Tachycardia, no murmurs, rubs, or gallops Abdominal: Soft, non-tender, non-distended, no peritoneal signs, negative Rodriguez sign : Deferred MSK: No edema, no unilateral swelling, 5/5 strength Neurologic: Alert and oriented, moving all extremities, normal speech, no focal weakness, no cerebellar signs Skin: No rash Psych: Normal mood Result Diagram: 01/29/17 1114 01/29/17 1114 Results 24 hrs Laboratory Tests Test 01/29/17 11:14 White Blood Count 6.810^3/ul Red Blood Count 5.4310^6/ul Hemoglobin 16.6g/dl Hematocrit 47.9% Mean Corpuscular Volume 88.2fl Mean Corpuscular Hemoglobin 30.6pg Mean Corpuscular Hemoglobin Concent 34.7g/dl Red Cell Distribution Width 12.1% Platelet Count 26936^3/UL Mean Platelet Volume 10.0fl Neutrophils % 67.8% Lymphocytes % 24.2% Monocytes % 6.9% Eosinophils % 0.1% Basophils % 0.7% Nucleated Red Blood Cells % 0.0/100WBC Neutrophils # 4.610^3/ul Lymphocytes # 1.610^3/ul Monocytes # 0.510^3/ul Eosinophils # 0.010^3/ul Basophils # 0.110^3/ul Nucleated Red Blood Cells # 0.010^3/ul Prothrombin Time 13.1Sec Prothrombin Time Ratio 1.0 INR International Normalized Ratio 0.99 Activated Partial Thromboplast Time 24.4Sec Sodium Level 130mmol/L Potassium Level 3.8mmol/L Chloride Level 90mmol/L Carbon Dioxide Level 19mmol/L Anion Gap 25 Blood Urea Nitrogen 5mg/dl Creatinine 0.68mg/dl Glucose Level 126mg/dl Calcium Level 8.8mg/dl Total Bilirubin 0.6mg/dl Direct Bilirubin 0.00mg/dl Indirect Bilirubin 0.6mg/dl Aspartate Amino Transf (AST/SGOT) 97IU/L Alanine Aminotransferase (ALT/SGPT) 93IU/L Alkaline Phosphatase 133IU/L Total Protein 8.2g/dl Albumin 4.7g/dl Globulin 3.50g/dl Albumin/Globulin Ratio 1.34 Lipase 75U/L Current Medications Medications (Trade) Dose Ordered Sig/[place]ourdes Route PRN Reason Start Time Stop Time Status Last Admin Dose Admin Sodium Chloride (NS) 1,000 ml @ 1,000 mls/hr Q1H STAT IV 01/29/17 11:09 01/29/17 12:08 DC 01/29/17 11:33 Lorazepam (Ativan) 2 mg ONCE ONCE IV 01/29/17 11:30 01/29/17 11:31 DC 01/29/17 11:23 Thiamine HCl (Vitamin B1) 100 mg ONCE ONCE PO 01/29/17 11:30 01/29/17 11:31 DC 01/29/17 11:56 Folic Acid (Folic Acid) 1 mg ONCE ONCE PO 01/29/17 11:30 01/29/17 11:31 DC 01/29/17 11:56 Ondansetron HCl (Zofran Inj) 4 mg ONCE STAT IV 01/29/17 11:09 01/29/17 11:12 DC 01/29/17 11:33 Famotidine (Pepcid Iv) 20 mg ONCE ONCE IV 01/29/17 11:30 01/29/17 11:31 DC 01/29/17 11:33 Procedures/MDM EKG, MONITORS, & DIAGNOSTIC IMAGING: EKG #1 EKG: I reviewed and interpreted a 12-lead EKG. Rhythm: Sinus tachycardia Ectopy: None Intervals: No abnormalities ST segments: No elevations or depressions T waves: No contiguous inversions EKG #2 EKG: I reviewed and interpreted a 12-lead EKG. Rhythm: Normal sinus rhythm Ectopy: None Intervals: No abnormalities ST segments: No elevations or depressions T waves: No contiguous inversions LAB INTERPRETATION: No leukocytosis, hyponatremia, borderline alcoholic ketoacidosis with slight anion gap acidosis although bicarb greater than 18 MEDICAL DECISION MAKING: The patient presents with classic signs and symptoms consistent with moderate alcohol withdrawal. The patient is epigastric abdominal pain likely significant for alcoholic gastritis though pancreatitis could needs to be ruled out. The patient otherwise has a benign abdominal exam. No evidence of encephalopathy. No evidence of trauma. No evidence of complication such as GI bleed. ER COURSE: The patient was given 1 L of saline. He was given thiamine, folic acid. The patient's laboratory testing does show early signs of alcoholic ketoacidosis though his bicarbonate is greater than 18. I do not believe he requires inpatient hospitalization. He was given D5 half-normal saline he was given complex carbohydrate meal. The patient received 1 dose of 2 mg Ativan. The patient has significant resolution of his symptoms. He has no tachycardia no tremor no hypertension no altered mental status. I believe the patient can be safely discharged home. He does not seem to be motivated to stop drinking therefore outpatient benzodiazepines are contraindicated. I kept the patient and/or family informed of laboratory and diagnostic imaging results throughout the emergency room course. DISPOSITION PLAN: We discussed follow up with the patient's primary care doctor within 24 to 48 hours as needed. We also discussed return to the emergency room for worsening symptoms or worsening condition. Outpatient referral: [None required] Discharge Medications: Zofran Departure Diagnosis: Primary Impression: Nausea and vomiting Qualified Code: R11.2 - Non-intractable vomiting with nausea, unspecified vomiting type Additional Impressions: Alcohol withdrawal Qualified Code: F10.230 - Alcohol withdrawal, uncomplicated Alcoholic ketoacidosis Condition: Stable Patient Instructions: Nausea and Vomiting-Adult, Alcohol Withdrawal Referrals: [facility] YOU HAVE RECEIVED A MEDICAL SCREENING EXAM AND THE RESULTS INDICATE THAT YOU DO NOT HAVE A CONDITION THAT REQUIRES URGENT TREATMENT IN THE EMERGENCY DEPARTMENT. FURTHER EVALUATION AND TREATMENT OF YOUR CONDITION CAN WAIT UNTIL YOU ARE SEEN IN YOUR DOCTORS OFFICE WITHIN THE NEXT 1-2 DAYS. IT IS YOUR RESPONSIBILITY TO MAKE AN APPOINTMENT FOR FOL-UP CARE. IF YOU HAVE A PRIMARY DOCTOR --you should call your primary doctor and schedule an appointment IF YOU DO NOT HAVE A PRIMARY DOCTOR YOU CAN CALL OUR PHYSICIAN REFERRAL HOTLINE AT IF YOU CAN NOT AFFORD TO SEE A PHYSICIAN YOU CAN CHOSE FROM THE FOLLOWING [facility] [address] [facility]. [facility] [address] [facility] [address] [facility] [address] [facility]. [facility] [address] [facility]. [facility]. [address] [facility]. [facility] YOU HAVE RECEIVED A MEDICAL SCREENING EXAM AND THE RESULTS INDICATE THAT YOU DO NOT HAVE A CONDITION THAT REQUIRES URGENT TREATMENT IN THE EMERGENCY DEPARTMENT. FURTHER EVALUATION AND TREATMENT OF YOUR CONDITION CAN WAIT UNTIL YOU ARE SEEN IN YOUR DOCTORS OFFICE WITHIN THE NEXT 1-2 DAYS. IT IS YOUR RESPONSIBILITY TO MAKE AN APPOINTMENT FOR FOLOW-UP CARE. IF YOU HAVE A PRIMARY DOCTOR --you should call your primary doctor and schedule and appointment IF YOU DO NOT HAVE A PRIMARY DOCTOR YOU CAN CALL OUR PHYSICIAN REFERRAL HOTLINE AT . IF YOU CAN NOT AFFORD TO SEE A PHYSICIAN YOU CAN CHOSE FROM THE FOLLOWING [facility] INSTITUTIONS: [facility] [address] [place] [address] [facility] [address] [place] [address] [facility] [address] [place] [address] Additional Instructions: Call your primary care doctor TOMORROW for an appointment during the next 1 WEEK.Tell the admin secretary that you were referred from this facility.See the doctor sooner or return here if your condition worsens before your appointment time. PEDRO PABLO LEBRON MD January 29, 2017 12:32
[2017-01-29 12:33] VITALS: TEMP 98.6
[2017-01-29 13:45] VITALS: BP 137/91; PULSE 90; RESP 16
== END 2017-01-29 13:48 | disposition home or self-care (01) ==
LOC: E/R 10:33
DX: R11.2 Nausea with vomiting, unspecified (principal); F10.230 Alcohol dependence with withdrawal, uncomplicated; R10.13 Epigastric pain; R40.2142 Coma scale, eyes open, spontaneous, at arrival to emergency department; R40.2252 Coma scale, best verbal response, oriented, at arrival to emergency department; R40.2362 Coma scale, best motor response, obeys commands, at arrival to emergency department; Z87.891 Personal history of nicotine dependence
CPT/HCPCS: 36415; 80053; 83690; 85025; 85610; 85730; 93005; 96374; 96375; J2060; J2405; J7030; Z7502; Z7610

== ENCOUNTER 2017-02-18 19:49 | Emergency (ER) | payer MEDICAID ==
[~2017-02-18] VITALS: Ht 177.8 cm; Wt 69.5 kg
[~2017-02-18 19:49] MED LIST changes: -LORA-441 PO
[2017-02-18 19:55] VITALS: Ht 177.8 cm; Wt 69.5 kg
[2017-02-18] MEDS ORDERED: SOD CHLORIDE 0.9% 1,000 ML IV STA (21:19)
[2017-02-18] MEDS ORDERED: ONDANSETRON 4 MG INJ IV STA (21:19)
[2017-02-18] MEDS ORDERED: FAMOTIDINE 20 MG TAB PO STA (21:19)
--- NOTE | 2017-02-18 21:19 | ERD ---
ER Documentation Chief Complaint Date/Time DATE: 02/18/17 TIME: 21:19 Chief Complaint anxiety, chest pain HPI 41-year-old male with a long history of alcohol abuse presents the ED complaining of anxiety and palpitations after drinking 2 bottles of [place] Rich today. Denies chest pain or shortness of breath. Nausea but denies abdominal pain, vomiting, hematemesis, hematochezia or melanotic stools. Denies depression, suicidal or homicidal ideations. No cough or hemoptysis. No leg pain or swelling. No relieving or exacerbating factors. No fevers or chills. ROS All systems reviewed and are negative except as per history of present illness. Medications Home Meds Active Scripts Ondansetron (Ondansetron Odt) 4 Mg Tab.rapdis, 4 MG PO Q6H Y for NAUSEA AND/OR VOMITING, #10 TAB Prov:PEDRO PABLO LEBRON MD 01/29/17 Allergies Allergies: Coded Allergies: sulfamethoxazole (Verified Allergy, Mild, HIVES, 01/29/17) trimethoprim (Verified Allergy, Mild, HIVES, 01/29/17) PMhx/Soc Reviewed in chart. As per HPI Medical and Surgical Hx: pt denies Surgical Hx History of Surgery: No Anesthesia Reaction: No Hx Neurological Disorder: No Hx Respiratory Disorders: No Hx Cardiac Disorders: No Hx Psychiatric Problems: No Hx Miscellaneous Medical Probl: Yes (GERD, ALCOHOL ABUSE) Hx Alcohol Use: Yes (alcoholic - drank 2 bottles of liquer thursday) Hx Substance Use: No Hx Tobacco Use: Yes (10 cig/ day) Smoking Status: Current every day smoker FmHx Reviewed in chart. No sudden cardiac or cancer Physical Exam Vitals Vital Signs Date Time Temp Pulse Resp B/P Pulse Ox O2 Delivery O2 Flow Rate FiO2 02/18/17 19:55 99.3 125 20 142/85 97 Physical Exam Const: [] Head: Atraumatic Eyes: Normal Conjunctiva ENT: Normal External Ears, Nose and Mouth. Neck: Full range of motion..~ No meningismus. Resp: Clear to auscultation bilaterally Cardio: Regular rate and rhythm, no murmurs Abd: Soft, non tender, non distended. Normal bowel sounds Skin: No petechiae or rashes Back: No midline or flank tenderness Ext: No cyanosis, or edema Neur: Awake and alert Psych: Normal Mood and Affect Results 24 hrs Current Medications Medications (Trade) Dose Ordered Sig/[place] Route PRN Reason Start Time Stop Time Status Last Admin Dose Admin Sodium Chloride (NS) 1,000 ml @ 1,000 mls/hr Q1H STAT IV 02/18/17 21:19 02/18/17 22:18 DC 02/18/17 21:25 Ondansetron HCl (Zofran Inj) 4 mg ONCE STAT IV 02/18/17 21:19 02/18/17 21:21 DC 02/18/17 21:25 Famotidine (Pepcid) 20 mg ONCE STAT PO 02/18/17 21:19 02/18/17 21:21 DC 02/18/17 21:25 Lorazepam (Ativan) 1 mg ONCE ONCE IV 02/18/17 21:30 02/18/17 21:31 DC 02/18/17 21:25 Thiamine HCl (Vitamin B1) 100 mg ONCE ONCE IV 02/18/17 21:30 02/18/17 21:31 DC 02/18/17 21:33 Procedures/MDM DOCUMENTS REVIEWED: ED nurse, prior ED, prior ED COURSE: Normal saline 1 L. Thiamine 100 mg. Ativan 1 mg. Zofran 4 mg REEXAMINATION/REEVALUATION: Time: 23:00. Doing well. Heart rate 69, sinus rhythm without ectopy. Symptoms resolved and wants to go home. MEDICAL DECISION MAKIN-year-old male with a long history of alcohol abuse presents the ED complaining of anxiety and palpitations after drinking 2 bottles of [place] Rich today. Patient presents with acute anxiety and mild alcohol withdrawal. No hallucinations or evidence of DTs. Symptoms completely resolved with intravenous hydration and lorazepam. Abdominal exam is benign without rebound, guarding or signs of peritonitis. Sinus tachycardia resolved with intravenous hydration and anxiolytics. Stable for discharge with precautionary instructions and outpatient follow-up as counseled. Extensive alcohol cessation counseling provided. Counseled patient regarding diagnostic workup, diagnosis and need for followup. Understands to return to ED if symptoms recur, worsen or any other concerns. Departure Diagnosis: Primary Impression: Palpitations Additional Impressions: Acute anxiety Chronic alcohol abuse Condition: Serious JOSE M THOMAS MD Feb 18, 2017 21:19
[2017-02-18] MEDS ORDERED: LORAZEPAM 2 MG INJ IV ONE (21:30)
[2017-02-18] MEDS ORDERED: THIAMINE 200 MG INJ IV ONE (21:30)
[2017-02-18 23:15] VITALS: BP 145/96; PULSE 69; RESP 18
== END 2017-02-18 23:41 | disposition home or self-care (01) ==
LOC: FTE 19:49
DX: R00.2 Palpitations (principal); R40.2252 Coma scale, best verbal response, oriented, at arrival to emergency department; F10.10 Alcohol abuse, uncomplicated; F17.210 Nicotine dependence, cigarettes, uncomplicated; R40.2142 Coma scale, eyes open, spontaneous, at arrival to emergency department; R40.2362 Coma scale, best motor response, obeys commands, at arrival to emergency department
CPT/HCPCS: 93005; J2060; J2405; J3411; J7030; Z7610; 96374; 96375

== ENCOUNTER 2017-02-20 19:18 | Emergency (ER) | payer MEDICAID ==
[~2017-02-20] VITALS: Ht 188 cm; Wt 69.0 kg
[2017-02-20 19:24] VITALS: Ht 188 cm; Wt 69.0 kg
[2017-02-20] MEDS ORDERED: SOD CHLORIDE 0.9% 1,000 ML IV STA (20:06)
[2017-02-20] MEDS ORDERED: ONDANSETRON 4 MG INJ IV STA (20:06)
[2017-02-20] MEDS ORDERED: FAMOTIDINE 20 MG TAB PO STA (20:06)
--- NOTE | 2017-02-20 20:17 | ERD ---
ER Documentation Chief Complaint Date/Time DATE: 02/20/17 TIME: 20:14 Chief Complaint R jaw pain since this morning HPI Patient is a 41-year-old male who presents to the ED with abdominal pain, back pain and and right sided face pain on and off x 1 week. Patient was seen here in the ER 2 days ago. Patient has a history of alcohol abuse. From Thursday to Thursday patient had 2 bottles of [place] and 20 large cans of beer. Patient states that he has had multiple episodes of nonbloody nonbilious emesis for the last week. States that he had a decrease in appetite and feels nauseous. Denies chest pain or cough or shortness of breath. Denies headache or dizziness. Denies leg pain or swelling. Denies diarrhea. He states that he has not had any alcohol in the last 2 days. He has tolerated fluids such as orange juice and water. Denies trauma or hitting his head. Denies blurry vision. ROS All systems reviewed and are negative except as per history of present illness. Medications Home Meds Active Scripts Famotidine* (Pepcid*) 20 Mg Tablet, 20 MG PO BID for 14 Days, TAB Prov:BOB MCKENZIE PA-C 02/20/17 Ondansetron (Ondansetron Odt) 4 Mg Tab.rapdis, 4 MG PO Q6H Y for NAUSEA AND/OR VOMITING, #10 TAB Prov:BOB MCKENZIE PA-C 02/20/17 Ondansetron (Ondansetron Odt) 4 Mg Tab.rapdis, 4 MG PO Q6H Y for NAUSEA AND/OR VOMITING, #10 TAB Prov:PEDRO PABLO LEBRON MD 01/29/17 Allergies Allergies: Coded Allergies: sulfamethoxazole (Verified Allergy, Mild, HIVES, 01/29/17) trimethoprim (Verified Allergy, Mild, HIVES, 01/29/17) PMhx/Soc History of Surgery: No Anesthesia Reaction: No Hx Neurological Disorder: No Hx Respiratory Disorders: No Hx Cardiac Disorders: No Hx Psychiatric Problems: No Hx Miscellaneous Medical Probl: Yes (GERD, ALCOHOL ABUSE) Hx Alcohol Use: Yes (Beer) Hx Substance Use: No Hx Tobacco Use: Yes (10 cig/ day) Smoking Status: Current every day smoker FmHx Family History: No coronary disease, No diabetes, No other Physical Exam Vitals Vital Signs Date Time Temp Pulse Resp B/P Pulse Ox O2 Delivery O2 Flow Rate FiO2 02/20/17 19:24 98.7 101 18 142/92 97 Physical Exam GENERAL: Well-developed, well-nourished male. Appears in no acute distress. HEAD: Normocephalic, atraumatic. EYES: Pupils are equally reactive bilaterally. EOMs grossly intact. No conjunctival erythema. ENT: Moist mucous membranes. No uvula deviation. No kissing tonsils. No exudates. NECK: Supple. No lymphadenopathy or thyromegaly. No meningismus. negative kernig. negative brudinski. LUNG: Clear to auscultation bilaterally. No rhonchi, wheezing, rales or coarse breath sounds. HEART: Regular rate and rhythm. No murmurs, rubs or gallops. ABDOMEN: No scars, ecchymosis or rashes noted. Soft, Positive bowel sounds in all four quadrants. No rebound tenderness, no guarding. (-) McBurneys point tenderness. Tenderness in the epigastric and right CVA. BACK: No midline tenderness. Extremities: Equal pulses bilaterally. No peripheral clubbing, cyanosis or edema. No unilateral leg swelling. NEUROLOGIC: Alert and oriented. Moving all four extremities. 5/5 strength in all extremities. Normal speech. Steady gait. SKIN: Normal color. Warm and dry. No rashes or lesions. Capillary refill < 2 seconds Result Diagram: 02/20/17202402/20/172024 Results 24 hrs Laboratory Tests Test 02/20/17 20:25 02/20/17 21:30 White Blood Count 8.610^3/ul Red Blood Count 5.1910^6/ul Hemoglobin 16.0g/dl Hematocrit 46.5% Mean Corpuscular Volume 89.6fl Mean Corpuscular Hemoglobin 30.8pg Mean Corpuscular Hemoglobin Concent 34.4g/dl Red Cell Distribution Width 11.9% Platelet Count 24658^3/UL Mean Platelet Volume 10.4fl Neutrophils % 63.7% Lymphocytes % 29.0% Monocytes % 5.1% Eosinophils % 1.5% Basophils % 0.5% Nucleated Red Blood Cells % 0.0/100WBC Neutrophils # 5.510^3/ul Lymphocytes # 2.510^3/ul Monocytes # 0.410^3/ul Eosinophils # 0.110^3/ul Basophils # 0.010^3/ul Nucleated Red Blood Cells # 0.010^3/ul Sodium Level 140mmol/L Potassium Level 3.4mmol/L Chloride Level 104mmol/L Carbon Dioxide Level 25mmol/L Anion Gap 14 Blood Urea Nitrogen 4mg/dl Creatinine 0.69mg/dl Glucose Level 97mg/dl Calcium Level 9.6mg/dl Total Bilirubin 0.6mg/dl Direct Bilirubin 0.00mg/dl Indirect Bilirubin 0.6mg/dl Aspartate Amino Transf (AST/SGOT) 47IU/L Alanine Aminotransferase (ALT/SGPT) 59IU/L Alkaline Phosphatase 139IU/L Total Protein 7.8g/dl Albumin 4.6g/dl Globulin 3.20g/dl Albumin/Globulin Ratio 1.43 Lipase 43U/L Urine Color LT. YELLOW Urine Clarity CLEAR Urine pH 6.5 Urine Specific [place] <=1.005 Urine Ketones NEGATIVE Urine Nitrite NEGATIVE Urine Bilirubin NEGATIVE Urine Urobilinogen 0.2 E.U./dL Urine Leukocyte Esterase NEGATIVE Urine Microscopic RBC 0-2/HPF Urine Microscopic WBC NONE SEEN/HPF Urine Epithelial Cells OCCASIONAL Urine Hemoglobin TRACE Urine Glucose NEGATIVE% Urine Total Protein NEGATIVE Current Medications Medications (Trade) Dose Ordered Sig/[place] Route PRN Reason Start Time Stop Time Status Last Admin Dose Admin Sodium Chloride (NS) 1,000 ml @ 1,000 mls/hr Q1H STAT IV 02/20/17 20:06 02/20/17 21:05 DC 02/20/17 20:23 Ondansetron HCl (Zofran Inj) 4 mg ONCE STAT IV 02/20/17 20:06 02/20/17 20:07 DC 02/20/17 20:23 Famotidine (Pepcid) 20 mg ONCE STAT PO 02/20/17 20:06 02/20/17 20:07 DC 02/20/17 20:23 Lorazepam (Ativan) 1 mg ONCE ONCE PO 02/20/17 21:30 02/20/17 21:31 DC 02/20/17 21:08 Procedures/MDM ER COURSE: I kept the patient and/or family informed of laboratory and diagnostic imaging results throughout the emergency room course. EKG, MONITORS, & DIAGNOSTIC IMAGING: [place] [id number] Radiology Main Line: [phone] DIAGNOSTIC IMAGING REPORT Patient: LAURITA DOMINGUEZ : 1975 Age: 41 Sex: M MR #: [id number] DOS: 02/20/172005 Ordering MD: BOB MCKENZIE PA-C Location: [facility] Room/Bed: PROCEDURE: CT abdomen and pelvis without intravenous contrast. CLINICAL INDICATION: Pain. TECHNIQUE: CT of the abdomen/pelvis was performed utilizing axial images with reconstructions in sagittal and coronal planes. The administered radiation dose is CTDI 7.5 mGy, DLP 429 mGy-cm. COMPARISON: 10/02/2016 FINDINGS: Visualized Chest: The visualized lung bases are clear. Abdomen: The spleen, pancreas, gallbladder,and adrenal glands are unremarkable. The liver is diffusely decreased in attenuation, compatible with hepatic steatosis. The kidneys are without hydronephrosis. No definite urinary calculi are seen. There is no evidence of bowel obstruction. The appendix is normal. No intra- abdominal free air is seen. There is no evidence of intra-abdominal adenopathy or free fluid. Pelvis: There is no evidence of pelvic adenopathy or free fluid. The prostate and bladder are unremarkable. Osseous structures: Unremarkable. IMPRESSION: No acute findings. Hepatic steatosis. RPTAT: HIKT .Brent Espinoza MD, MD Date Time Electronically viewed and signed by .Brent Espinoza MD, on 02/20/2017 21:19 .T/ CC: BOB MCKENZIE PA-C MEDICATIONS: 1 mg Ativan. 1 L IV fluids. Zofran and Pepcid. Tolerated well and stated improvement in symptoms LAB INTERPRETATION: CBC showed no evidence of systemic infection or severe anemia. CMP showed no evidence of electrolyte abnormalities, severe acidosis, alkalosis, renal failure , or liver disease. Lipase showed no evidence of acute pancreatitis. UA showed no evidence of leukocytes, nitrites or hematuria. MEDICAL DECISION MAKING: This is a 41-year-old male who presents with epigastric pain and vomiting 1 week. Vital signs were reviewed. Patient is afebrile. Patient is not hypoxic. Patient is not toxic or ill-appearing. Patient was seen here 3 days ago for similar symptoms however patient did not receive any laboratory studies or workup. Therefore a full workup was done as patient did have epigastric pain and vomiting with a history of alcohol abuse. However I have low suspicion for pancreatitis. Low suspicion for ACS, AAA, perforated ulcer, bowel obstruction, cholecystitis, choledocholithiasis, cholangitis, pancreatitis, hepatic abscess, appendicitis, diverticulitis, gastroenteritis, hepatitis, peptic ulcer disease. Low suspicion for cardiac emergency. Low suspicion for delirium tremens. DISCHARGE: At this time, patient is stable for discharge and outpatient management with no new complaints during the ER course. Patient was sent home with Alyssa and Elizabeth. Patient will be discharged home with instructions to recheck for new or worsening symptoms such as fever, nausea, weakness, LOC and to follow up with primary care in the next 1-2 days. Patient was advised to return to the ER for any new or worsening symptoms. Plan was discussed and patient and/or family understands and agrees. Home instructions were given. Departure Diagnosis: Primary Impression: Abdominal pain Abdominal location: epigastric Qualified Code: R10.13 - Epigastric pain Condition: Stable BOB MCKENZIE PA-C Feb 20, 2017 20:17
[2017-02-20 20:49] LABS: ADD SCAN DIFF NO
[2017-02-20 20:53] LABS: BASOPHILS % 0.5 % (0.0-2.0); EOSINOPHILS # 0.1 10^3/ul (0.0-0.5); EOSINOPHILS % 1.5 % (0.0-7.0); HEMATOCRIT 46.5 % (42.0-52.0); LYMPHOCYTES # 2.5 10^3/ul (0.8-2.9); MEAN CORPUSCULAR HEMOGLOBIN 30.8 pg (29.0-33.0); MEAN CORPUSCULAR HGB CONC 34.4 g/dl (32.0-37.0); MEAN CORPUSCULAR VOLUME 89.6 fl (82.0-101.0); MEAN PLATELET VOLUME 10.4 fl (7.4-10.4); MONOCYTE # 0.4 10^3/ul (0.3-0.9); MONOCYTES % 5.1 % (0.0-11.0); NEUTROPHIL # 5.5 10^3/ul (1.6-7.5); NEUTROPHILS % 63.7 % (39.0-77.0); PLATELET COUNT 269 10^3/UL (140-415); RED BLOOD COUNT 5.19 10^6/ul (4.70-6.10); RED CELL DISTRIBUTION WIDTH 11.9 % (11.5-14.5); WHITE BLOOD COUNT 8.6 10^3/ul (4.8-10.8)
[2017-02-20 21:12] LABS: ALBUMIN 4.6 g/dl (3.3-4.9); ALBUMIN/GLOBULIN RATIO 1.43; BILIRUBIN,INDIRECT 0.6 mg/dl (0-1.1); BILIRUBIN,TOTAL 0.6 mg/dl (0.2-1.3); CALCIUM 9.6 mg/dl (8.4-10.2); CREATININE 0.69 mg/dl (0.61-1.24); POTASSIUM 3.4 mmol/L (3.5-5.1); TOTAL PROTEIN 7.8 g/dl (6.1-8.1)
--- NOTE | 2017-02-20 21:19 | RADRPT ---
PROCEDURE: CT abdomen and pelvis without intravenous contrast. CLINICAL INDICATION: Pain. TECHNIQUE: CT of the abdomen/pelvis was performed utilizing axial images with reconstructions in s agittal and coronal planes. The administered radiation dose is CTDI 7.5 mGy, DLP 429 mGy-cm. COMPARISON: 10/02/2016 FINDINGS: Visualized Chest: The visualized lung bases are clear. Abdomen: The spleen, pancreas, gallbladder,and adrenal glands are unremarkable. The liver is diffusely dec reased in attenuation, compatible with hepatic steatosis. The kidneys are without hydronephrosis. No definite urinary calculi are seen. There is no evidence of bowel obstruction. The appendix is normal. No intra-abdominal free air is seen. There is no evidence of intra-abdominal adenopathy or free fluid. Pelvis: There is no evidence of pelvic adenopathy or free fluid. The prostate and bladder are unremarkable. Osseous structures: Unremarkable. IMPRESSION: No acute findings. Hepatic steatosis. RPTAT: HIKT .Brent Espinoza MD, MD Date Time Electronically viewed and signed by .Brent Espinoza MD, MD on 02/20/2017 21:19 .T/
[2017-02-20] MEDS ORDERED: LORAZEPAM 1 MG TAB PO ONE (21:30)
[2017-02-20 21:48] LABS: ADD UMIC YES; UR BILIRUBIN (Dip) NEGATIVE (NEGATIVE); UR BLOOD (Dip) TRACE (NEGATIVE); UR CLARITY CLEAR (CLEAR); UR COLOR LT. YELLOW (YELLOW); UR GLUCOSE (Dip) NEGATIVE (NEGATIVE); UR KETONES (Dip) NEGATIVE (NEGATIVE); UR LEUKOCYTE ESTERASE (Dip) NEGATIVE (NEGATIVE); UR NITRITE (Dip) NEGATIVE (NEGATIVE); UR TOTAL PROTEIN (Dip) NEGATIVE (NEGATIVE); UR UROBILINOGEN (Dip) 0.2 E.U./dL (0.1-1.0)
[2017-02-20 22:12] LABS: URINE RBCS 0-2 /HPF (0)
[2017-02-20] MEDS ORDERED: ONDA4TAB14 PO (22:17)
[2017-02-20] MEDS ORDERED: FAMO-18 PO (22:18)
[2017-02-20 22:36] VITALS: BP 132/84; PULSE 88; RESP 16
== END 2017-02-20 22:37 | disposition home or self-care (01) ==
LOC: FTE 19:18
DX: R10.13 Epigastric pain (principal); R11.10 Vomiting, unspecified; F17.210 Nicotine dependence, cigarettes, uncomplicated
CPT/HCPCS: 36415; 74176; 80053; 81001; 83690; 85025; 96374; J2405; J7030; Z7502; Z7610

== ENCOUNTER 2017-03-12 09:26 | Emergency (ER) | payer MEDICAID ==
[~2017-03-12] VITALS: Ht 185.4 cm; Wt 78.0 kg
[~2017-03-12 09:26] MED LIST changes: +FAMO-18 PO
[2017-03-12 09:30] VITALS: Ht 185.4 cm; Wt 78.0 kg
[2017-03-12] MEDS ORDERED: HYDROmorphONE 1 MG/ML SYG IV STA (10:20)
[2017-03-12] MEDS ORDERED: SOD CHLORIDE 0.9% 1,000 ML IV STA (10:20)
[2017-03-12] MEDS ORDERED: ONDANSETRON 4 MG INJ IV STA (10:20)
[2017-03-12] MEDS ORDERED: LORAZEPAM 0.5 MG TAB PO ONE (10:30)
[2017-03-12 10:47] LABS: ADD SCAN DIFF NO
[2017-03-12 10:51] LABS: BASOPHIL # 0.1 10^3/ul (0.0-0.1); BASOPHILS % 0.7 % (0.0-2.0); EOSINOPHILS % 0.1 % (0.0-7.0); HEMATOCRIT 47.4 % (42.0-52.0); LYMPHOCYTES # 1.1 10^3/ul (0.8-2.9); LYMPHOCYTES % 13.1 % (15.0-51.0); MEAN CORPUSCULAR HEMOGLOBIN 31.9 pg (29.0-33.0); MEAN CORPUSCULAR HGB CONC 35.9 g/dl (32.0-37.0); MEAN CORPUSCULAR VOLUME 88.9 fl (82.0-101.0); MEAN PLATELET VOLUME 9.7 fl (7.4-10.4); MONOCYTE # 0.5 10^3/ul (0.3-0.9); MONOCYTES % 6.1 % (0.0-11.0); NEUTROPHIL # 6.8 10^3/ul (1.6-7.5); NEUTROPHILS % 79.9 % (39.0-77.0); PLATELET COUNT 279 10^3/UL (140-415); RED BLOOD COUNT 5.33 10^6/ul (4.70-6.10); RED CELL DISTRIBUTION WIDTH 12.8 % (11.5-14.5); WHITE BLOOD COUNT 8.5 10^3/ul (4.8-10.8)
[2017-03-12] MEDS ORDERED: PANTOPRAZOLE 40 MG INJ IV ONE (11:00)
[2017-03-12 11:09] LABS: ALBUMIN 5.1 g/dl (3.3-4.9); ALBUMIN/GLOBULIN RATIO 1.59; CALCIUM 9.1 mg/dl (8.4-10.2); CREATININE 0.81 mg/dl (0.61-1.24); POTASSIUM 3.5 mmol/L (3.5-5.1); TOTAL PROTEIN 8.3 g/dl (6.1-8.1)
[2017-03-12] MEDS ORDERED: LORAZEPAM 1 MG TAB PO ONE (11:30)
[2017-03-12] MEDS ORDERED: ONDA8TAB14 PO (11:42)
[2017-03-12] MEDS ORDERED: LORA1TAB PO (11:42)
[2017-03-12] MEDS ORDERED: PANT40TA3 PO (11:42)
--- NOTE | 2017-03-12 11:59 | ERD ---
ER Documentation Chief Complaint Date/Time DATE: 03/12/17 TIME: 11:56 Chief Complaint VOMITING AND DIARRHEA , HPI This 41-year-old male complains of 3 day history of vomiting diarrhea. Patient complains of epigastric abdominal pain as well. Patient has a history of gastritis and alcohol abuse. Patient has a fevers, blood, lower abdominal pain. Patient denies he is taking any medications for gastritis or otherwise. Patient admits to drinking heavily over the last few days. ROS All systems reviewed and are negative except as per history of present illness. Medications Home Meds Active Scripts Pantoprazole* (Protonix*) 40 Mg Tablet.dr, 40 MG PO DAILY, #30 TAB Prov:AARON MEDEIROS MD 03/12/17 Lorazepam* (Lorazepam*) 1 Mg Tablet, 1 MG PO Q8, #10 TAB Prov:AARON MEDEIROS MD 03/12/17 Ondansetron (Ondansetron Odt) 8 Mg Tab.rapdis, 8 MG PO Q6H Y for NAUSEA AND/OR VOMITING, #8 TAB Prov:AARON MEDEIROS MD 03/12/17 Famotidine* (Pepcid*) 20 Mg Tablet, 20 MG PO BID for 14 Days, TAB Prov:BOB MCKENZIE PA-C 02/20/17 Ondansetron (Ondansetron Odt) 4 Mg Tab.rapdis, 4 MG PO Q6H Y for NAUSEA AND/OR VOMITING, #10 TAB Prov:BOB MCKENZIE PA-C 02/20/17 Ondansetron (Ondansetron Odt) 4 Mg Tab.rapdis, 4 MG PO Q6H Y for NAUSEA AND/OR VOMITING, #10 TAB Prov:PEDRO PABLO LEBRON MD 01/29/17 Allergies Allergies: Coded Allergies: sulfamethoxazole (Verified Allergy, Mild, HIVES, 01/29/17) trimethoprim (Verified Allergy, Mild, HIVES, 01/29/17) PMhx/Soc History of Surgery: No Anesthesia Reaction: No Hx Neurological Disorder: No Hx Respiratory Disorders: No Hx Cardiac Disorders: No Hx Psychiatric Problems: No Hx Miscellaneous Medical Probl: Yes (GERD, ALCOHOL ABUSE) Hx Alcohol Use: Yes (Beer) Hx Substance Use: No Hx Tobacco Use: Yes (10 cig/ day) Smoking Status: Current every day smoker Physical Exam Vitals Vital Signs Date Time Temp Pulse Resp B/P Pulse Ox O2 Delivery O2 Flow Rate FiO2 03/12/17 09:30 98.1 128 20 137/86 99 Physical Exam Const: [] Alert, not ill-appearing Head: Atraumatic Eyes: Normal Conjunctiva ENT: Normal External Ears, Nose and Mouth. Neck: Full range of motion..~ No meningismus. Resp: Clear to auscultation bilaterally Cardio: Regular rate and rhythm, no murmurs Abd: Soft, minimal epigastric tenderness. No rebound no masses. non distended. Normal bowel sounds Skin: No petechiae or rashes Back: No midline or flank tenderness Ext: No cyanosis, or edema Neur: Awake and alert Psych: Normal Mood and Affect Result Diagram: 03/12/17 1035 03/12/17 1035 Results 24 hrs Laboratory Tests Test 03/12/17 10:35 White Blood Count 8.510^3/ul Red Blood Count 5.3310^6/ul Hemoglobin 17.0g/dl Hematocrit 47.4% Mean Corpuscular Volume 88.9fl Mean Corpuscular Hemoglobin 31.9pg Mean Corpuscular Hemoglobin Concent 35.9g/dl Red Cell Distribution Width 12.8% Platelet Count 88335^3/UL Mean Platelet Volume 9.7fl Neutrophils % 79.9% Lymphocytes % 13.1% Monocytes % 6.1% Eosinophils % 0.1% Basophils % 0.7% Nucleated Red Blood Cells % 0.0/100WBC Neutrophils # 6.810^3/ul Lymphocytes # 1.110^3/ul Monocytes # 0.510^3/ul Eosinophils # 0.010^3/ul Basophils # 0.110^3/ul Nucleated Red Blood Cells # 0.010^3/ul Sodium Level 135mmol/L Potassium Level 3.5mmol/L Chloride Level 96mmol/L Carbon Dioxide Level 19mmol/L Anion Gap 24 Blood Urea Nitrogen 8mg/dl Creatinine 0.81mg/dl Glucose Level 122mg/dl Calcium Level 9.1mg/dl Total Bilirubin 1.0mg/dl Direct Bilirubin 0.00mg/dl Indirect Bilirubin 1.0mg/dl Aspartate Amino Transf (AST/SGOT) 59IU/L Alanine Aminotransferase (ALT/SGPT) 56IU/L Alkaline Phosphatase 127IU/L Total Protein 8.3g/dl Albumin 5.1g/dl Globulin 3.20g/dl Albumin/Globulin Ratio 1.59 Lipase 39U/L Current Medications Medications (Trade) Dose Ordered Sig/[place] Route PRN Reason Start Time Stop Time Status Last Admin Dose Admin Sodium Chloride (NS) 1,000 ml @ 1,000 mls/hr Q1H STAT IV 03/12/17 10:20 03/12/17 11:19 DC 03/12/17 10:39 Hydromorphone HCl (Dilaudid) 1 mg ONCE STAT IV 03/12/17 10:20 03/12/17 10:23 DC 03/12/17 10:38 Ondansetron HCl (Zofran Inj) 4 mg ONCE STAT IV 03/12/17 10:20 03/12/17 10:24 DC 03/12/17 10:38 Lorazepam (Ativan) 0.5 mg ONCE ONCE PO 03/12/17 10:30 03/12/17 10:31 DC 03/12/17 10:41 Pantoprazole (Protonix Iv) 40 mg ONCE ONCE IV 03/12/17 11:00 03/12/17 11:01 DC 03/12/17 11:13 Lorazepam (Ativan) 1 mg ONCE ONCE PO 03/12/17 11:30 03/12/17 11:31 DC 03/12/17 11:13 Procedures/MDM IV was obtained. Patient was given 1 L normal saline IV for the 3 days history of vomiting diarrhea. Patient was given Zofran 4 mg IV and total of 1.5 mg Ativan for shakiness and anxiety and possibly alcohol withdrawal symptoms. He was given Protonix 40 mg IV as well. Patient initially was given Dilaudid 1 mg IV as well. Patient has no acute findings on CBC or CMP or for further evaluation. Patient had a benign abdomen on serial exam. Patient presents with vomiting diarrhea, history of alcohol abuse and epigastric abdominal pain. There is no current signs or symptoms of pancreatitis, acute abdomen, obstruction, appendicitis or delirium tremens. We treated a short course of Ativan and Zofran and Protonix at home and primary care follow-up. Patient was counseled on alcohol abuse and recommendations for treatment to abstain from alcohol for worsening chronic medical conditions Departure Diagnosis: Primary Impression: Vomiting and diarrhea Condition: Stable Patient Instructions: Gastritis (Adult) Referrals[facility] Usted se wiseman hecho un examen mdico de control que le indica que no est en salvador condicin que requiera tratamiento urgente en el Departamento de Emergencia. Un estudio ms profundo y el tratamiento de barrow condicin pueden esperar sin ningn riesgo hasta que usted sea atendida/o en el consultorio de barrow mdico o salvador cl mary. Es responsabilidad suya arreglar salvador gómez para el seguimiento del gage. MANEJO DE CONDICIONES NO URGENTES EN EL FUTURO 1) Si usted tiene un mdico de atencin primaria: Usted debera llamar a barrow mdico de atencin primaria antes de venir al departamento de emergencia. Despus de las horas de consultorio, barrow doctor o barrow asociado/a est disponible por telfono. El mdico o enfermero de jessica en el servicio telefnico puede asesorarle por sydnie medio para atender el problema, o gage contrario se puede programar salvador gómez. 2) Si usted no tiene un mdico de atencin primaria: Llame al mdico o clnica de referencia que aparece abajo petr las horas de consultorio para hacer salvador gómez para que le vean. CLINICAS: [facility] [phone] [facility] [phone] [facility] [phone] [facility] [phone] [place] [phone] [facility]. [phone] [address] Additional Instructions: Examines normal hoy. Cheque otro vez con barrow doctor primario en el proximo rios or regresa para mas o nueva simptomas. AARON MEDEIROS MD Mar 12, 2017 11:59
[2017-03-12 12:25] VITALS: BP 142/84; PULSE 90; RESP 20; TEMP 98.2
== END 2017-03-12 12:25 | disposition home or self-care (01) ==
LOC: FTE 09:26
DX: R11.10 Vomiting, unspecified (principal); R19.7 Diarrhea, unspecified; F17.210 Nicotine dependence, cigarettes, uncomplicated
CPT/HCPCS: 36415; 80053; 83690; 85025; 96374; 96375; C9113; J1170; J2405; J7030; Z7502; Z7610

== ENCOUNTER 2017-05-13 11:45 | Emergency (ER) | payer MEDICAID ==
[~2017-05-13] VITALS: Ht 188 cm; Wt 67.0 kg
[~2017-05-13 11:45] MED LIST changes: -FAMO-18 PO; +FAMO-96 PO; +LORA1TAB PO; +ONDA8TAB14 PO; +PANT40TA3 PO
[2017-05-13 11:49] VITALS: Ht 188 cm; Wt 67.0 kg
[2017-05-13] MEDS ORDERED: IBUPROFEN 800 MG TAB PO ONE (13:30)
--- NOTE | 2017-05-13 13:38 | RADRPT ---
PROCEDURE: Left Shoulder Series CLINICAL INDICATION: Left shoulder pain TECHNIQUE: 3 views of the left shoulder are available for review. COMPARISON: None available FINDINGS: There is a minimally displaced fracture of the distal left clavicle. No other fractures are identif ied. The glenohumeral joint is intact. The acromioclavicular joint remains intact. The visualized portions of the left chest wall are within normal limits. The soft tissues are unremarkable. IMPRESSION: 1. Distal left clavicular fracture. RPTAT: KK .Roby Casiano MD, MD Date Time Electronically viewed and signed by .Roby Casiano MD, MD on 05/13/2017 13:38 .B/
[2017-05-13] MEDS ORDERED: HYDR-906 PO (14:25)
[2017-05-13] MEDS ORDERED: IBUP800T25 PO (14:25)
--- NOTE | 2017-05-13 14:43 | ERD ---
ER Documentation Chief Complaint Date/Time DATE: 05/13/17 TIME: 14:34 Chief Complaint Left shoulder pain s/p fall HPI 41-year-old male complaining of left shoulder pain 4 days. Patient stated that he tripped and fell 4 days ago at home, hit his left shoulder on the edge of the countertop. Patient stated that he is having trouble move his left arm due to pain. The pain is constant and throbbing. He had not taking any medication at home for pain. Denies any other injuries. ROS All systems reviewed and are negative except as per history of present illness. Medications Home Meds Active Scripts Hydrocodone/Acetaminophen ([place] 5-325 Tablet) 1 Each Tablet, 1 TAB PO Q6H Y for SEVERE PAIN LEVEL 7-10, #7 TAB Prov:MCKENZIE HARDEN NP 05/13/17 Ibuprofen* (Motrin*) 800 Mg Tab, 800 MG PO Q8, #30 TAB Prov:MCKENZIE HARDEN NP 05/13/17 Pantoprazole* (Protonix*) 40 Mg Tablet.dr, 40 MG PO DAILY, #30 TAB Prov:AARON MEDEIROS MD 03/12/17 Lorazepam* (Lorazepam*) 1 Mg Tablet, 1 MG PO Q8, #10 TAB Prov:AARON MEDEIROS MD 03/12/17 Ondansetron (Ondansetron Odt) 8 Mg Tab.rapdis, 8 MG PO Q6H Y for NAUSEA AND/OR VOMITING, #8 TAB Prov:AARON MEDEIROS MD 03/12/17 Famotidine* (Pepcid*) 20 Mg Tablet, 20 MG PO BID for 14 Days, TAB Prov:BOB MCKENZIE PA-C 02/20/17 Ondansetron (Ondansetron Odt) 4 Mg Tab.rapdis, 4 MG PO Q6H Y for NAUSEA AND/OR VOMITING, #10 TAB Prov:BOB MCKENZIE PA-C 02/20/17 Ondansetron (Ondansetron Odt) 4 Mg Tab.rapdis, 4 MG PO Q6H Y for NAUSEA AND/OR VOMITING, #10 TAB Prov:PEDRO PABLO LEBRON MD 01/29/17 Allergies Allergies: Coded Allergies: sulfamethoxazole (Verified Allergy, Mild, HIVES, 05/13/17) trimethoprim (Verified Allergy, Mild, HIVES, 05/13/17) PMhx/Soc History of Surgery: No Anesthesia Reaction: No Hx Neurological Disorder: No Hx Respiratory Disorders: No Hx Cardiac Disorders: No Hx Psychiatric Problems: No Hx Miscellaneous Medical Probl: Yes (GERD, ALCOHOL ABUSE) Hx Alcohol Use: Yes (Beer) Hx Substance Use: No Hx Tobacco Use: Yes (10 cig/ day) Smoking Status: Current every day smoker Physical Exam Vitals Vital Signs Date Time Temp Pulse Resp B/P Pulse Ox O2 Delivery O2 Flow Rate FiO2 05/13/17 11:49 97.9 110 18 151/89 97 Physical Exam General: Patient is well-developed. Awake, alert, and conversant, in no apparent distress Skin: Warm and dry Head: Normocephalic, atraumatic without palpable deformities Eyes: Pupils equal, round, and reactive to light. Extraocular movements intact. No periorbital ecchymosis or step-off Chest: No surface trauma. Nontender without crepitus or deformity. No palpable subcutaneous air. Lungs have good tidal volume, lungs clear to auscultate bilaterally Heart: Regular rate and rhythm. No murmur, rub, or gallop Extremities: No surface trauma. Point tenderness at the distal left clavicle. Left shoulder was limited range of motion due to pain. Good strength in all extremities. Sensation to light touch intact. All peripheral pulses are intact and equal Neuro: Alert and oriented 4, GCS 15, cranial nerves II through XII intact. Motor and sensory exam is nonfocal. Reflexes are symmetric Results 24 hrs Current Medications Medications (Trade) Dose Ordered Sig/[place] Route PRN Reason Start Time Stop Time Status Last Admin Dose Admin Ibuprofen (Motrin) 800 mg ONCE ONCE PO 05/13/17 13:30 05/13/17 13:31 DC 05/13/17 13:39 PROCEDURE: Left Shoulder Series CLINICAL INDICATION: Left shoulder pain TECHNIQUE: 3 views of the left shoulder are available for review. COMPARISON: None available FINDINGS: There is a minimally displaced fracture of the distal left clavicle. No other fractures are identified. The glenohumeral joint is intact. The acromioclavicular joint remains intact. The visualized portions of the left chest wall are within normal limits. The soft tissues are unremarkable. IMPRESSION: 1. Distal left clavicular fracture. RPTAT: KK .Rboy Casiano MD, Date Time Electronically viewed and signed by .Roby Casiano MD, MD on 2016 13:38 .B/ CC: MCKENZIE HARDEN MAINTENANCE CARPENTER Procedures/MDM Well-appearing 41-year-old male present ED with left shoulder pain after fall 4 days ago. X-ray of the left shoulder showed a nondisplaced minimally displaced fracture of the distal left clavicle. No other fractures or abnormalities were seen. Patient was given ibuprofen in the ED for pain. Patient reports pain relief after medication. The area of injury was immobilized with a sling. Patient was noted to be comfortable and neurovascularly intact both before and after the immobilization. Patient appears well, stable for discharge and outpatient management. Patient advised to follow-up with PCP for orbital referral. Medical decision making shared with patient and family. Education provided to patient and family. Patient and family expressed understanding of the plan. Medications on discharge: Ibuprofen, [place]. Follow-up: Primary care provider in 2-3 days or return to ED if worse. Disclaimer: Inadvertent spelling and grammatical errors are likely due to EHR/ dictation software use and do not reflect on the overall quality of patient care. Also, please note that the electronic time recorded on this note does not necessarily reflect the actual time of the patient encounter. Departure Diagnosis: Primary Impression: Clavicle fracture Encounter type: initial encounter Clavicle location: lateral end Fracture type: closed Fracture alignment: nondisplaced Laterality: left Qualified Code: S42.035A - Closed nondisplaced fracture of acromial end of left clavicle , initial encounter Condition: Stable Patient Instructions: Fracture, Clavicle Referrals: COMM[facility]ITY [facility] YOU HAVE RECEIVED A MEDICAL SCREENING EXAM AND THE RESULTS INDICATE THAT YOU DO NOT HAVE A CONDITION THAT REQUIRES URGENT TREATMENT IN THE EMERGENCY DEPARTMENT. FURTHER EVALUATION AND TREATMENT OF YOUR CONDITION CAN WAIT UNTIL YOU ARE SEEN IN YOUR DOCTORS OFFICE WITHIN THE NEXT 1-2 DAYS. IT IS YOUR RESPONSIBILITY TO [facility]. IF YOU HAVE A PRIMARY DOCTOR --you should call your primary doctor and schedule an appointment IF YOU DO NOT HAVE A PRIMARY DOCTOR YOU CAN CALL OUR PHYSICIAN REFERRAL HOTLINE AT IF YOU CAN NOT AFFORD TO SEE A PHYSICIAN YOU CAN CHOSE FROM THE FOLLOWING [facility] [address] [facility] [address] [facility] [address] [facility] [address] [facility]. [facility] [address] [facility]. [facility] [address] Additional Instructions: Specialist:Usted tiene salvador condicin mdica que requiere que guillermina a un especialista dentro de los prximos 1-2 verdugo.POR FAVOR,CON CAMACHO SEGUIMIENTO DE PRIMARIA PHSICIAN refferal. SI USTED NO TIENE UN MDICO GENERAL Y / O USTED NO PUEDE PAGAR lucille a un mdico,los siguientes schumacher RECURSOS sido suministrado a usted. ES CAMACHO RESPONSABILIDAD PARA SER VISTOS POR EL ESPECIALISTA: MCKENZIE HARDEN NP May 13, 2017 14:43
== END 2017-05-13 14:44 | disposition home or self-care (01) ==
LOC: FTE 11:45
DX: S42.035A Nondisplaced fracture of lateral end of left clavicle, initial encounter for closed fracture (principal); F17.210 Nicotine dependence, cigarettes, uncomplicated; W01.0XXA Fall on same level from slipping, tripping and stumbling without subsequent striking against object, initial encounter; Y92.009 Unspecified place in unspecified non-institutional (private) residence as the place of occurrence of the external cause
CPT/HCPCS: 73030; Z7502; Z7610

== ENCOUNTER 2017-07-14 12:30 | Emergency (ER) | payer MEDICAID ==
[~2017-07-14] VITALS: Ht 188 cm; Wt 69.2 kg
[~2017-07-14 12:30] MED LIST changes: +HYDR-906 PO; +IBUP800T25 PO
[2017-07-14 13:11] VITALS: Ht 188 cm; Wt 69.2 kg
[2017-07-14] MEDS ORDERED: HYDROmorphONE 1 MG/ML SYG IV STA (13:21)
[2017-07-14] MEDS ORDERED: ONDANSETRON 4 MG INJ IV STA (13:21)
[2017-07-14] MEDS ORDERED: LORAZEPAM 2 MG INJ IV ONE (14:00)
[2017-07-14] MEDS ORDERED: IOHEXOL 300MG/ML 150 ML BTL ONE (14:35)
[2017-07-14] MEDS ORDERED: SOD CHLORIDE 0.9% 100 ML ONE (14:35)
--- NOTE | 2017-07-14 16:06 | RADRPT ---
PROCEDURE: CT Abdomen and Pelvis with contrast. CLINICAL INDICATION: periumbilical pain TECHNIQUE: Routine abdominopelvic CT was performed following administration of intravenous contras t and reformatted in the axial, coronal, sagittal planes. Intravenous contrast: 90 cc of Omnipaque-300. Radiation dose: CTDIvol (mGy) = 8.0; total DLP (mGy-cm) = 12/13/2013 One or more of the following radiation dose techniques were used: -Automated exposure control. -Adjust of the mA and/or kV according to patient size. -Use of iterative reconstruction technique. COMPARISON: 02/20/2017. FINDINGS: Liver, gallbladder, biliary system, pancreas, adrenal glands, and spleen are normal. Kidneys demonstrate symmetric enhancement with mild bilateral pelviectasis without urolithiasis or o bstructive uropathy. No abnormal bowel wall thickening or dilatation. The appendix is normal. No mesenteric or retroperit aceves lymphadenopathy. No free fluid or fluid collection. Lung bases are clear. No concerning bone lesions. IMPRESSION: No abdominopelvic mass, lymphadenopathy, or focal acute inflammatory process. RPTAT: EE .Ryley Mckay MD, MD Date Time Electronically viewed and signed by .Ryley Mckay MD, on 07/14/2017 16:11 .C/
[2017-07-14] MEDS ORDERED: HYDR-906 PO (16:24)
[2017-07-14] MEDS ORDERED: ALPR0.5T PO (16:24)
[2017-07-14] MEDS ORDERED: ONDA4TAB14 PO (16:29)
--- NOTE | 2017-07-14 16:29 | ERD ---
ER Documentation Chief Complaint Chief Complaint ap with n/v/d since sat HPI This is a 5-year-old male with history of periumbilical pain with vomiting and diarrhea 2 for the past 2 days. No fever says he is very anxious as well. Pain is constant and crampy. He has no chest pain shortness of breath no blood in his vomit or diarrhea no bile in the vomit. No mucus in the stool no recent travel or known bad food exposures ROS All systems reviewed and are negative except as per history of present illness. Medications Home Meds Active Scripts Alprazolam* (Xanax*) 0.5 Mg Tab, 0.5 MG PO TID for ANXIETY, #14 TAB Prov:ANTHONY DOBBSSTBRAYAN Eugene DO 07/14/17 Hydrocodone/Acetaminophen ([place]iley 5-325 Tablet) 1 Each Tablet, 1 TAB PO Q6H Y for PAIN, #7 TAB Prov:ANTHONY DOBBSSTOLOS A. DO 07/14/17 Hydrocodone/Acetaminophen (Bailey 5-325 Tablet) 1 Each Tablet, 1 TAB PO Q6H Y for SEVERE PAIN LEVEL 7-10, #7 TAB Prov:MCKENZIE HARDEN NP 05/13/17 Ibuprofen* (Motrin*) 800 Mg Tab, 800 MG PO Q8, #30 TAB Prov:MCKENZIE HARDEN NP 05/13/17 Pantoprazole* (Protonix*) 40 Mg Tablet.dr, 40 MG PO DAILY, #30 TAB Prov:AARON MEDEIROS MD 03/12/17 Lorazepam* (Lorazepam*) 1 Mg Tablet, 1 MG PO Q8, #10 TAB Prov:AARON MEDEIROS MD 03/12/17 Ondansetron (Ondansetron Odt) 8 Mg Tab.rapdis, 8 MG PO Q6H Y for NAUSEA AND/OR VOMITING, #8 TAB Prov:AARON MEDEIROS MD 03/12/17 Famotidine* (Pepcid*) 20 Mg Tablet, 20 MG PO BID for 14 Days, TAB Prov:BOB MCKENZIE PA-C 02/20/17 Ondansetron (Ondansetron Odt) 4 Mg Tab.rapdis, 4 MG PO Q6H Y for NAUSEA AND/OR VOMITING, #10 TAB Prov:BOB MCKENZIE PA-C 02/20/17 Ondansetron (Ondansetron Odt) 4 Mg Tab.rapdis, 4 MG PO Q6H Y for NAUSEA AND/OR VOMITING, #10 TAB Prov:PEDRO PABLO LEBRON MD 01/29/17 Allergies Allergies: Coded Allergies: sulfamethoxazole (Verified Allergy, Mild, HIVES, 07/14/17) trimethoprim (Verified Allergy, Mild, HIVES, 07/14/17) PMhx/Soc Medical and Surgical Hx: pt denies Surgical Hx History of Surgery: No Anesthesia Reaction: No Hx Neurological Disorder: No Hx Respiratory Disorders: No Hx Cardiac Disorders: No Hx Psychiatric Problems: No Hx Miscellaneous Medical Probl: Yes (GERD, ALCOHOL ABUSE) Hx Alcohol Use: Yes (Beer) Hx Substance Use: No Hx Tobacco Use: Yes (10 cig/ day) Smoking Status: Current every day smoker FmHx Family History: No coronary disease Physical Exam Vitals Vital Signs Date Time Temp Pulse Resp B/P Pulse Ox O2 Delivery O2 Flow Rate FiO2 07/14/17 13:11 98.4 105 18 158/88 7 Physical Exam Const: Well-developed, well-nourished Head: Atraumatic, normocephalic Eyes: Normal Conjunctiva, PERRLA, EOMI, normal sclera, no nystagmus ENT: Normal External Ears, Nose and Mouth, moist mucus membranes. Neck: Full range of motion. No meningismus, no lymphadenopathy. Resp: Clear to auscultation bilaterally, no wheezing, rhonchi, rales Cardio: Regular rate and rhythm, no murmurs, S1 S2 present Abd: Soft, mild periumbilical pain, non distended. Normal bowel sounds , no guarding or rebound, no pulsitile abdominal masses or bruits Skin: No petechiae or rashes, no ecchymosis , no maculopapular rash Back: No midline or flank tenderness Ext: No cyanosis, or edema, FROM x 4, normal inspection, neurovascularly intact x 4 Neur: Awake and alert, STR 5/5 x 4, sensation intact x 4, no focal findings, cerebellum intact Psych: Normal Mood and Affect Result Diagram: 07/14/17 1345 07/14/17 1345 Results 24 hrs Laboratory Tests Test 07/14/17 13:45 11/7/17 14:33 White Blood Count 8.410^3/ul Red Blood Count 4.7610^6/ul Hemoglobin 14.9g/dl Hematocrit 42.7% Mean Corpuscular Volume 89.7fl Mean Corpuscular Hemoglobin 31.3pg Mean Corpuscular Hemoglobin Concent 34.9g/dl Red Cell Distribution Width 11.7% Platelet Count 72382^3/UL Mean Platelet Volume 10.3fl Neutrophils % 65.1% Lymphocytes % 26.9% Monocytes % 6.6% Eosinophils % 0.2% Basophils % 1.0% Nucleated Red Blood Cells % 0.0/100WBC Neutrophils # 5.510^3/ul Lymphocytes # 2.310^3/ul Monocytes # 0.610^3/ul Eosinophils # 0.010^3/ul Basophils # 0.110^3/ul Nucleated Red Blood Cells # 0.010^3/ul Sodium Level 135mmol/L Potassium Level 3.8mmol/L Chloride Level 96mmol/L Carbon Dioxide Level 23mmol/L Anion Gap 20 Blood Urea Nitrogen 9mg/dl Creatinine 0.65mg/dl Glucose Level 86mg/dl Calcium Level 9.2mg/dl Total Bilirubin 1.0mg/dl Direct Bilirubin 0.00mg/dl Indirect Bilirubin 1.0mg/dl Aspartate Amino Transf (AST/SGOT) 39IU/L Alanine Aminotransferase (ALT/SGPT) 30IU/L Alkaline Phosphatase 112IU/L Total Protein 8.1g/dl Albumin 4.5g/dl Globulin 3.60g/dl Albumin/Globulin Ratio 1.25 Lipase 37U/L Urine Color COLORLESS Urine Clarity CLEAR Urine pH 6.0 Urine Specific [place] 1.001 Urine Ketones 1+mg/dL Urine Nitrite NEGATIVEmg/dL Urine Bilirubin NEGATIVEmg/dL Urine Urobilinogen NEGATIVEmg/dL Urine Leukocyte Esterase NEGATIVELeu/ul Urine Hemoglobin NEGATIVEmg/dL Urine Glucose NEGATIVEmg/dL Urine Total Protein NEGATIVEmg/dl Current Medications Medications (Trade) Dose Ordered Sig/Lourdes Route PRN Reason Start Time Stop Time Status Last Admin Dose Admin Hydromorphone HCl (Dilaudid) 1 mg ONCE STAT IV 07/14/17 13:21 07/14/17 13:22 DC 07/14/17 13:43 Ondansetron HCl (Zofran Inj) 4 mg ONCE STAT IV 07/14/17 13:21 07/14/17 13:22 DC 07/14/17 13:44 Lorazepam (Ativan) 1 mg ONCE ONCE IV 07/14/17 14:00 07/14/17 14:02 DC 07/14/17 14:09 IV Flush 10 ml 10 ml STK-MED ONCE .ROUTE 07/14/17 14:35 07/14/17 14:36 DC 07/14/17 15:50 Sodium Chloride (NS) 100 ml @ ud STK-MED ONCE .ROUTE 07/14/17 14:35 07/14/17 14:36 DC 07/14/17 15:54 Iohexol (Omnipaque 300mg/ ml) 150 ml STK-MED ONCE .ROUTE 07/14/17 14:35 07/14/17 14:36 DC 07/14/17 15:54 Procedures/MDM PROCEDURE: CT Abdomen and Pelvis with contrast. CLINICAL INDICATION: periumbilical pain TECHNIQUE: Routine abdominopelvic CT was performed following administration of intravenous contrast and reformatted in the axial, coronal, sagittal planes. Intravenous contrast: 90 cc of Omnipaque-300. Radiation dose: CTDIvol (mGy) = 8.0; total DLP (mGy-cm) = 12/13/2013 One or more of the following radiation dose techniques were used: -Automated exposure control. -Adjust of the mA and/or kV according to patient size. -Use of iterative reconstruction technique. COMPARISON: 02/20/2017. FINDINGS: Liver, gallbladder, biliary system, pancreas, adrenal glands, and spleen are normal. Kidneys demonstrate symmetric enhancement with mild bilateral pelviectasis without urolithiasis or obstructive uropathy. No abnormal bowel wall thickening or dilatation. The appendix is normal. No mesenteric or retroperitoneal lymphadenopathy. No free fluid or fluid collection. Lung bases are clear. No concerning bone lesions. IMPRESSION: No abdominopelvic mass, lymphadenopathy, or focal acute inflammatory process. RPTAT: EE .Ryley Mckay MD, MD Date Time Electronically viewed and signed by .Ryley Mckay MD, MD on 07/14/2017 16:11 .C/ CC: BRIONNA DOBBS DO Patient likely has gastroenteritis will treat symptomatically no acute process no appendicitis Departure Diagnosis: Primary Impression: Abdominal pain Abdominal location: lower abdomen, unspecified Qualified Code: R10.30 - Lower abdominal pain Additional Impressions: Vomiting and diarrhea Anxiety Condition: Stable Patient Instructions: Abdominal Pain Referrals: NO PRIMARY,CARE PHYSICIAN (PCP) BRIONNA DOBBS DO Jul 14, 2017 16:29
[2017-07-14 16:42] VITALS: BP 137/79; PULSE 97; RESP 18; TEMP 98.4
== END 2017-07-14 16:43 | disposition home or self-care (01) ==
LOC: FTE 12:30
DX: F41.9 Anxiety disorder, unspecified (principal); R11.10 Vomiting, unspecified; R19.7 Diarrhea, unspecified; F17.210 Nicotine dependence, cigarettes, uncomplicated
CPT/HCPCS: 36415; 74177; 80053; 81003; 83690; 85025; 96374; 96375; J1170; J2060; J2405; Q9967; Z7502; Z7610

== ENCOUNTER 2017-08-19 18:43 | Emergency (ER) | payer MEDICAID ==
[~2017-08-19] VITALS: Ht 182.9 cm; Wt 67.7 kg
[~2017-08-19 18:43] MED LIST changes: +ALPR0.5T PO; +HEPARIN 5,000 UNIT/0.5 ML VIAL ONE
[2017-08-19 18:46] VITALS: Ht 182.9 cm; Wt 67.7 kg
[2017-08-19 19:24] LABS: BASOPHIL # 0.1 10^3/ul (0.0-0.1); BASOPHILS % 0.6 % (0.0-2.0); EOSINOPHILS # 0.1 10^3/ul (0.0-0.5); EOSINOPHILS % 0.8 % (0.0-7.0); HEMATOCRIT 47.3 % (42.0-52.0); HEMOGLOBIN 16.7 g/dl (14.0-18.0); LYMPHOCYTES # 4.1 10^3/ul (0.8-2.9); LYMPHOCYTES % 49.1 % (15.0-51.0); MEAN CORPUSCULAR HEMOGLOBIN 30.6 pg (29.0-33.0); MEAN CORPUSCULAR HGB CONC 35.3 g/dl (32.0-37.0); MEAN CORPUSCULAR VOLUME 86.6 fl (82.0-101.0); MEAN PLATELET VOLUME 9.6 fl (7.4-10.4); MONOCYTE # 0.6 10^3/ul (0.3-0.9); MONOCYTES % 6.8 % (0.0-11.0); NEUTROPHIL # 3.5 10^3/ul (1.6-7.5); NEUTROPHILS % 42.6 % (39.0-77.0); PLATELET COUNT 304 10^3/UL (140-415); RED BLOOD COUNT 5.46 10^6/ul (4.70-6.10); RED CELL DISTRIBUTION WIDTH 11.8 % (11.5-14.5); WHITE BLOOD COUNT 8.3 10^3/ul (4.8-10.8)
--- NOTE | 2017-08-19 19:30 | RADRPT ---
PROCEDURE: CT Brain without contrast. CLINICAL INDICATION: Code stroke, headache TECHNIQUE: A CT of the brain was performed utilizing axial imaging from the skull base through the vertex without IV contrast. Multiplanar reformatted images were made. Images were reviewed on a [employer] workstation. The CTDIvol is 45.01 mGy and the DLP is 720.23 mGycm. One or more the following dose reduction techniques were utilized: Automated exposure control, adjus tment of the mA and / or kV according to patient's size, or use of iterative reconstruction techniqu e. DICOM images are available. COMPARISON: None FINDINGS: There is no intracranial hemorrhage, mass effect, or midline shift. No extra-axial fluid collection is seen. The ventricles and sulci are normal in size and configuration. The density of the brain is normal, and the mars white matter differentiation appears well-preserved. No skull fracture seen. T here is appearance of fluid in the visualized upper right maxillary sinus. Mucosal thickening in rig ht maxillary and ethmoid sinuses. IMPRESSION: No acute bleed. No acute major territory infarct seen. Fluid in visualized upper right maxillary sin us. Critical result discussed with Dr. Cadet at 07:26 p.m. on 08/19/2017. RPTAT: HJES .Duke Crow MD, Date Time Electronically viewed and signed by .Duke Crow MD, on 08/19/2017 19:30 .S/
[2017-08-19 19:35] LABS: INR 0.91; PROTIME 12.3 Sec (11.9-14.9)
[2017-08-19 19:36] LABS: ANION GAP 19 (8-16); BLOOD UREA NITROGEN 7 mg/dl (7-20); CARBON DIOXIDE 28 mmol/L (21-31); CHLORIDE 95 mmol/L (97-110); CREATININE 0.68 mg/dl (0.61-1.24); GLUCOSE 144 mg/dl (70-220); PARTIAL THROMBOPLASTIN TIME 26.5 Sec (25.0-35.0); POTASSIUM 3.4 mmol/L (3.5-5.1); SODIUM 139 mmol/L (135-144)
[2017-08-19] MEDS ORDERED: SOD CHLORIDE 0.9% 50 ML IVPB STA (19:42)
--- NOTE | 2017-08-19 19:44 | RADRPT ---
PROCEDURE: Chest x-ray CLINICAL INDICATION: Stroke TECHNIQUE: Chest single view COMPARISON: 12/01/2016 FINDINGS: The heart is normal in size. The pulmonary vessels are normal in caliber. The lungs are clear. Th e costophrenic angles are sharp. The visualized bony thorax is unremarkable. IMPRESSION: No acute cardiopulmonary disease. RPTAT: HH .Ravinder Loaiza MD, Date Time Electronically viewed and signed by .Ravinder Loaiza MD, on 08/19/2017 19:43 .W/
[2017-08-19 19:48] LABS: TROPONIN-I < 0.012 ng/ml (0.00-0.12)
--- NOTE | 2017-08-19 19:59 | STROKE ---
Date/Time of Note Date/Time of Note DATE: 08/19/17 TIME: 21:57 Patient Information General Patient location: emergency Arrival Date Onset Time: 18:00 Age 41 Gender male Weight 67.7 kg POC Glucose Glucose Result Bedside Glucose - 72 Hours Test 08/19/17 19:16 Bedside Glucose 139mg/dL (70-220) Vital Signs Vital Signs Vital Signs Date Time Temp Pulse Resp B/P Pulse Ox O2 Delivery O2 Flow Rate FiO2 08/19/17 18:46 98.6 127 20 165/90 97 Patient History Current Medications Allergies: Coded Allergies: sulfamethoxazole (Verified Allergy, Mild, HIVES, 08/19/17) trimethoprim (Verified Allergy, Mild, HIVES, 08/19/17) Labs Hematology Labs Hematology Test 08/19/17 19:20 White Blood Count 8.310^3/ul (4.8-10.8) Red Blood Count 5.4610^6/ul (4.70-6.10) Hemoglobin 16.7g/dl (14.0-18.0) Hematocrit 47.3% (42.0-52.0) Mean Corpuscular Volume 86.6fl (82.0-101.0) Mean Corpuscular Hemoglobin 30.6pg (29.0-33.0) Mean Corpuscular Hemoglobin Concent 35.3g/dl (32.0-37.0) Red Cell Distribution Width 11.8% (11.5-14.5) Platelet Count 43923^3/UL (140-415) Mean Platelet Volume 9.6fl (7.4-10.4) Neutrophils % 42.6% (39.0-77.0) Lymphocytes % 49.1% (15.0-51.0) Monocytes % 6.8% (0.0-11.0) Eosinophils % 0.8% (0.0-7.0) Basophils % 0.6% (0.0-2.0) Nucleated Red Blood Cells % 0.0/100WBC (0.0-0.0) Neutrophils # 3.510^3/ul (1.6-7.5) Lymphocytes # 4.110^3/ul (0.8-2.9) Monocytes # 0.610^3/ul (0.3-0.9) Eosinophils # 0.110^3/ul (0.0-0.5) Basophils # 0.110^3/ul (0.0-0.1) Nucleated Red Blood Cells # 0.010^3/ul (0.0-0.0) Chemistry Labs Chemistry Test 08/19/17 19:16 08/19/17 19:20 Bedside Glucose 139mg/dL (70-220) Sodium Level 139mmol/L (135-144) Potassium Level 3.4mmol/L (3.5-5.1) Chloride Level 95mmol/L (97-110) Carbon Dioxide Level 28mmol/L (21-31) Anion Gap 19 (8-16) Blood Urea Nitrogen 7mg/dl (7-20) Creatinine 0.68mg/dl (0.61-1.24) Glucose Level 144mg/dl (70-220) Hemoglobin A1c 5.5% (0-5.9) Calcium Level 9.0mg/dl (8.4-10.2) Troponin I < 0.012ng/ml (0.00-0.12) Coagulation Labs: Coagulation Test 08/19/17 19:20 Prothrombin Time 12.3Sec (11.9-14.9) Prothrombin Time Ratio 1.0 INR International Normalized Ratio 0.91 Activated Partial Thromboplast Time 26.5Sec (25.0-35.0) History & Physical History of Present Illness 41 YO M LKW 1800 PST when had acute L face/arm/leg weakness. Patient was sitting at home alone when the symptoms started. NIH Stroke Scale NIH Stroke Scale Total Score: 12 Date/Time Recorded DATE: 08/19/17 TIME: Submitted By Barry Garg t-PA Imaging Review Imaging Reviewed: Yes Date/Time Imaging Reviewed DATE: 08/19/17 TIME: :57 Imaging Findings Right inferior parietal hyperdensity that is not blood per Radiology interpretation t-PA Administration Recommendation: Yes Weight 67.7 kg Recommedation submitted by Barry Garg Recommendations Impression Diagnosis 41 YO M with acute ischemic stroke with L hemiparesis/hemianesthesia presenting within the IV tPA window. He consents to IV tPA. He is non-compliant with examination but may have a left field cut thus VAN criteria positive. [place] [facility] [place] [facility] where CTA can will be pursued to rule-out LVO. Disposition Transfer to [facility] Recommendation Impression and plans were discussed with the patient and separately, with the ER physician. The risks and benefits of the clot busting drug tPA were discussed. This included a 30% increased probability of good outcome at 3 months compared to no treatment with tPA and a 6% greater chance of bleeding into the brain when compared to patients not receiving tPA. Patient's blood pressure will need to be <185/110 in order to be a candidate for TPA. The patient expressed understanding and would like to receive IV tPA. The patient should be admitted for evaluation according to hospital stroke order sets. This may include, if possible, MRI of the brain, MRA of the cervical and intracranial vessels, echocardiogram with bubble study, cardiac telemetry monitoring, PT, OT, Speech Pathology evaluations, LDL, A1c. Stroke risk factors should be evaluated and treated if appropriate. Vital signs and neuro checks should be undertaken every hour for the next 12 hours and, if the patient is stable without progression, every 4 hours thereafter. Venous thromboembolism prophylaxis should be undertaken with SCDs sleeves. No anticoagulation or antiplatelet agents should be given for the first 24 hours after TPA. Short- term treatment of hypertension should be undertaken with nicardipine to maintain blood pressure in a range of systolic <180 systolic and diastolic <110 as clinically appropriate. Unless contraindicated, the patient should be started on a statin as well as sliding scale insulin until the patients glucometer readings are consistently 140-180. Repeat Head CT should be done within 24 hours of IV tPA administration to ensure no interval development of intracerebral hemorrhage. If evidence of ICH, then emergent Neurosurgical consultation will be required. Consultation with a local neurologist is recommended. Additionally we are getting CTA at [facility] to rule-out LVO amenable to mechanical thrombectomy. BARRY GARG MD Aug 19, 2017 19:59
[2017-08-19] MEDS ORDERED: ALTEPLASE 100 MG INJ IV* ONE (20:00)
[2017-08-19] MEDS ORDERED: ALTEPLASE (tPA) 1 MG/ML BOLUS SYG IV* ONE (20:00)
[2017-08-19] MEDS ORDERED: ONDANSETRON 4 MG INJ IV STA (20:06)
--- NOTE | 2017-08-19 20:22 | ERD ---
ER Documentation Chief Complaint Chief Complaint left sided numbness w/ slurred speech 1 hour ago HPI Patient is a 41 yo male who presents with left arm and leg weakness. he also has facial droop and slurred speech. Symptoms started 1 hour prior to arrival. No tx as of yet. Constant symptoms. Started while sitting down. ROS All systems reviewed and are negative except as per history of present illness. Medications Home Meds Discontinued Scripts Ondansetron (Ondansetron Odt) 4 Mg Tab.rapdis, 4 MG PO Q6H Y for NAUSEA AND/OR VOMITING, #10 TAB Prov:ANTHONY DOBBSSTOLOS A. DO 07/14/17 Alprazolam* (Xanax*) 0.5 Mg Tab, 0.5 MG PO TID for ANXIETY, #14 TAB Prov:ANTHONY DOBBSSTOLOS ACristino DO 07/14/17 Hydrocodone/Acetaminophen ([place] 5-325 Tablet) 1 Each Tablet, 1 TAB PO Q6H Y for PAIN, #7 TAB Prov:ANTHONY DOBBSSTSHAUNNAS A. DO 07/14/17 Hydrocodone/Acetaminophen ([place] 5-325 Tablet) 1 Each Tablet, 1 TAB PO Q6H Y for SEVERE PAIN LEVEL 7-10, #7 TAB Prov:MCKENZIE HARDEN NP 05/13/17 Ibuprofen* (Motrin*) 800 Mg Tab, 800 MG PO Q8, #30 TAB Prov:MCKENZIE HARDEN. KAILYN 05/13/17 Pantoprazole* (Protonix*) 40 Mg Tablet.dr, 40 MG PO DAILY, #30 TAB Prov:AARON MEDEIROS MD 03/12/17 Lorazepam* (Lorazepam*) 1 Mg Tablet, 1 MG PO Q8, #10 TAB Prov:AARON MEDEIROS MD 03/12/17 Ondansetron (Ondansetron Odt) 8 Mg Tab.rapdis, 8 MG PO Q6H Y for NAUSEA AND/OR VOMITING, #8 TAB Prov:AARON MEDEIROS MD 03/12/17 Famotidine* (Pepcid*) 20 Mg Tablet, 20 MG PO BID for 14 Days, TAB Prov:BOB MCKENZIE PA-C 02/20/17 Ondansetron (Ondansetron Odt) 4 Mg Tab.rapdis, 4 MG PO Q6H Y for NAUSEA AND/OR VOMITING, #10 TAB Prov:BOB MCKENZIE PA-C 02/20/17 Ondansetron (Ondansetron Odt) 4 Mg Tab.rapdis, 4 MG PO Q6H Y for NAUSEA AND/OR VOMITING, #10 TAB Prov:PEDRO PABLO LEBRON MD 01/29/17 Allergies Allergies: Coded Allergies: sulfamethoxazole (Verified Allergy, Mild, HIVES, 08/19/17) trimethoprim (Verified Allergy, Mild, HIVES, 08/19/17) PMhx/Soc Medical and Surgical Hx: pt denies Medical Hx, pt denies Surgical Hx History of Surgery: No Anesthesia Reaction: No Hx Neurological Disorder: No Hx Respiratory Disorders: No Hx Cardiac Disorders: No Hx Psychiatric Problems: No Hx Miscellaneous Medical Probl: Yes (GERD, ALCOHOL ABUSE) Hx Alcohol Use: Yes Hx Substance Use: No Hx Tobacco Use: Yes (10 cig/ day) Smoking Status: Current every day smoker FmHx Family History: No diabetes Physical Exam Vitals Vital Signs Date Time Temp Pulse Resp B/P Pulse Ox O2 Delivery O2 Flow Rate FiO2 08/19/17 20:09 Nasal Cannula 2 08/19/17 19:45 104 22 161/109 98 08/19/17 18:46 98.6 127 20 165/90 97 Physical Exam Const: Left sided weakness Head: Atraumatic Eyes: Normal Conjunctiva ENT: Normal External Ears, Nose and Mouth. Neck: Full range of motion..~ No meningismus. Resp: Clear to auscultation bilaterally Cardio: Regular rate and rhythm, no murmurs Abd: Soft, non tender, non distended. Normal bowel sounds Skin: No petechiae or rashes Back: No midline or flank tenderness Ext: No cyanosis, or edema Neur: Awake with slurred speech, left sided facial droop, and left arm and leg weakness Result Diagram: 08/19/17191908/19/171919 Results 24 hrs Laboratory Tests Test 08/19/17 19:16 08/19/17 19:20 Bedside Glucose 139mg/dL White Blood Count 8.310^3/ul Red Blood Count 5.4610^6/ul Hemoglobin 16.7g/dl Hematocrit 47.3% Mean Corpuscular Volume 86.6fl Mean Corpuscular Hemoglobin 30.6pg Mean Corpuscular Hemoglobin Concent 35.3g/dl Red Cell Distribution Width 11.8% Platelet Count 29292^3/UL Mean Platelet Volume 9.6fl Neutrophils % 42.6% Lymphocytes % 49.1% Monocytes % 6.8% Eosinophils % 0.8% Basophils % 0.6% Nucleated Red Blood Cells % 0.0/100WBC Neutrophils # 3.510^3/ul Lymphocytes # 4.110^3/ul Monocytes # 0.610^3/ul Eosinophils # 0.110^3/ul Basophils # 0.110^3/ul Nucleated Red Blood Cells # 0.010^3/ul Prothrombin Time 12.3Sec Prothrombin Time Ratio 1.0 INR International Normalized Ratio 0.91 Activated Partial Thromboplast Time 26.5Sec Sodium Level 139mmol/L Potassium Level 3.4mmol/L Chloride Level 95mmol/L Carbon Dioxide Level 28mmol/L Anion Gap 19 Blood Urea Nitrogen 7mg/dl Creatinine 0.68mg/dl Glucose Level 144mg/dl Hemoglobin A1c 5.5% Calcium Level 9.0mg/dl Troponin I < 0.012ng/ml Current Medications Medications (Trade) Dose Ordered Sig/[place] Route PRN Reason Start Time Stop Time Status Last Admin Dose Admin Alteplase, Recombinant (Activase) 6.1 mg BOLUS OVER 1 MIN ONCE IV* 08/19/17 20:00 08/19/17 20:01 DC Alteplase, Recombinant 54.8 mg 54.8 mg ISCHEMIC STROKE ONCE IV* 08/19/17 20:00 08/19/17 20:01 DC Sodium Chloride (NS) 50 ml @ 0 mls/hr ONCE STAT IVPB 08/19/17 19:42 08/19/17 19:43 DC Ondansetron HCl (Zofran Inj) 4 mg ONCE STAT IV 08/19/17 20:06 08/19/17 20:07 DC 08/19/17 20:10 Procedures/MDM ct brain negative per radiology for bleed. EKG read by me shows nml rate, intervals, and no st elevations overall nml ekg. Patient is a 41 yo male with acute stroke. Arrival was at 18:43, the patient didn't get to a room until 19:13 when I called a Code Stroke. Teleneuro called 19:15. To CT at 19:17. Spoke with Dr. Gunter Teleneuro at 19:23. 19:26 radiology called and said no bleed. 19:37 Dr. Gunter at [facility] for eval and at 19:43 was still evaluating. 19:49 TPA was given by nursing. 19:53 call to [facility] for higher level of care transfer and at 19:[address] Aldridge at [facility]. At 20:31 still awaiting acceptance from [facility]. Critcal care 45 minutes excluding all billable procedures. Departure Diagnosis: Primary Impression: Stroke CVA mechanism: unspecified Qualified Code: I63.9 - Cerebrovascular accident (CVA), unspecified mechanism Condition: Critical RAY GARCIA MD Aug 19, 2017 20:22
[2017-08-19] MEDS ORDERED: morphine 4 MG/ML VIAL IV STA (20:39)
[2017-08-19 21:20] VITALS: BP 143/100; PULSE 106; RESP 21
[2017-08-19] MEDS ORDERED: ASPIRIN 325 MG TAB PO ONE (21:30)
== END 2017-08-19 21:33 | disposition short-term general hospital (02) ==
LOC: E/R 18:43
DX: I63.9 Cerebral infarction, unspecified (principal); F17.210 Nicotine dependence, cigarettes, uncomplicated; R40.2142 Coma scale, eyes open, spontaneous, at arrival to emergency department; R40.2252 Coma scale, best verbal response, oriented, at arrival to emergency department; R40.2362 Coma scale, best motor response, obeys commands, at arrival to emergency department; R00.2 Palpitations
CPT/HCPCS: 37195; 70450; 71010; 80048; 82962; 83036; 84484; 85025; 85610; 85730; 93005; J2270; J2405; J2997; Z7610; 36415; 96374; 96375; J1644

== ENCOUNTER 2017-09-23 23:50 | Inpatient (IN) | END 2017-09-26 14:05 | disposition home or self-care (01) | DRG 379 ==

== ENCOUNTER 2017-11-18 08:35 | Emergency (ER) | END 2017-11-18 12:48 | disposition home or self-care (01) ==

== ENCOUNTER 2017-11-22 07:54 | Emergency (ER) | END 2017-11-22 11:37 | disposition home or self-care (01) ==

== ENCOUNTER 2018-02-02 20:27 | Emergency (ER) | END 2018-02-03 06:07 | disposition home or self-care (01) ==

== ENCOUNTER 2018-02-17 10:56 | Emergency (ER) | END 2018-02-17 14:48 | disposition home or self-care (01) ==

== ENCOUNTER 2018-03-18 22:05 | Emergency (ER) | END 2018-03-19 04:56 | disposition home or self-care (01) ==

== ENCOUNTER 2018-07-12 16:19 | Emergency (ER) | END 2018-07-12 19:07 | disposition home or self-care (01) ==

== ENCOUNTER 2019-01-21 16:27 | Emergency (ER) | payer MEDICAID ==
[~2019-01-21] VITALS: Ht 177.8 cm; Wt 75.8 kg
[~2019-01-21 16:27] MED LIST changes: -ALPR0.5T PO; -FAMO-96 PO; -HEPARIN 5,000 UNIT/0.5 ML VIAL ONE; -HYDR-906 PO; -IBUP800T25 PO; +LOPE2CAP PO; +LORA-441 PO; -LORA1TAB PO; +OMEP40CA6 PO; -ONDA8TAB14 PO; -PANT40TA3 PO; +ZOF8 PO
[2019-01-21 16:31] VITALS: Ht 177.8 cm; Wt 75.8 kg
[2019-01-21] MEDS ORDERED: PANT40TA4 PO (17:03)
[2019-01-21] MEDS ORDERED: SOD CHLORIDE 0.9% 1,000 ML IV STA (17:03)
[2019-01-21] MEDS ORDERED: ONDANSETRON 4 MG INJ IV STA (17:03)
[2019-01-21] MEDS ORDERED: FAMOTIDINE 20 MG TAB PO STA (19:00)
[2019-01-21] MEDS ORDERED: PANTOPRAZOLE (EC) 40 MG TAB PO ONE (19:00)
[2019-01-21] MEDS ORDERED: LIDOCAINE/MYLANTA 40 ML BTL PO STA (19:00)
[2019-01-21] MEDS ORDERED: PANT40TA3 PO (19:48)
[2019-01-21] MEDS ORDERED: METO10TA3 PO (19:49)
--- NOTE | 2019-01-21 19:50 | ERD ---
ER Documentation Chief Complaint Chief Complaint Complains of epigastric pain x3 days HPI 43-year-old male complaining of epigastric pain for the past 3 days. He has had associated nausea with nonbilious vomiting. He has seen specks of black in his vomit. That started today. He has also had one episode of melena today. He denies any fevers or chills. Epigastric pain is aching, radiating to his back, with no alleviating or exacerbating factors. Denies chest pain or shortness of breath. ROS All systems reviewed and are negative except as per history of present illness. Medications Home Meds Active Scripts Metoclopramide Hcl* (Metoclopramide Hcl*) 10 Mg Tablet, 10 MG PO Q6H PRN for NAUSEA AND OR VOMITING, #10 TAB Prov:DANTE BAEZ MD 01/21/19 Pantoprazole* (Protonix*) 40 Mg Tablet., 40 MG PO DAILY, #30 TAB Prov:DANTE BAEZ MD 01/21/19 Reported Medications Pantoprazole* (Pantoprazole*) 40 Mg Tablet., 40 MG PO AC BREAKFAST, TAB 01/21/19 Discontinued Reported Medications Omeprazole* (Omeprazole*) 40 Mg Capsule., 40 MG PO BID, #30 CAP 02/02/18 Discontinued Scripts Lorazepam* (Ativan*) 0.5 Mg Tablet, 0.5 MG PO Q8, #10 TAB Prov:TOSIN DIAZ MD 07/12/18 Loperamide Hcl* (Imodium*) 2 Mg Capsule, 2 MG PO .AFTER EA LOOSE BM PRN for DIARRHEA, #10 TAB Prov:TOSIN DIAZ MD 03/19/18 Ondansetron (Ondansetron Odt) 4 Mg Tab.rapdis, 4 MG PO Q6H PRN for NAUSEA AND/OR VOMITING, #10 TAB Prov:TOSIN DIAZ MD 03/19/18 Ondansetron Hcl* (Zofran*) 8 Mg Tab, 8 MG PO Q6H PRN for NAUSEA AND OR VOMITING, #20 TAB Prov:DARCY CARMONA MD 02/17/18 Allergies Allergies: Coded Allergies: sulfamethoxazole (Verified Allergy, Mild, HIVES, 01/21/19) trimethoprim (Verified Allergy, Mild, HIVES, 01/21/19) PMhx/Soc Medical and Surgical Hx: pt denies Medical Hx, pt denies Surgical Hx History of Surgery: No Anesthesia Reaction: No Hx Neurological Disorder: Yes (Stroke 2017) Hx Respiratory Disorders: No Hx Cardiac Disorders: No Hx Psychiatric Problems: No Hx Miscellaneous Medical Probl: Yes (alcoholic) Hx Alcohol Use: Yes (CURRENT EVERYDAY USE) Hx Substance Use: No Hx Tobacco Use: Yes Smoking Status: Never smoker FmHx Family History: No diabetes Physical Exam Vitals Vital Signs Date Temp Pulse Resp B/P (MAP) Pulse Ox O2 O2 Flow FiO2 Time Delivery Rate 01/21/19 98.3 81 14 124/83 99 Room Air 20:00 (97) 01/21/19 77 16 133/79 99 Room Air 18:30 (97) 01/21/19 98.4 128 20 146/89 97 16:31 (108) Physical Exam Const: No acute distress Head: Atraumatic Eyes: Normal Conjunctiva ENT: Normal External Ears, Nose and Mouth. Neck: Full range of motion. No meningismus. Resp: Clear to auscultation bilaterally Cardio: Regular rate and rhythm, no murmurs Abd: Soft, non tender, non distended. Normal bowel sounds Skin: No petechiae or rashes Back: No midline or flank tenderness Ext: No cyanosis, or edema Neur: Awake and alert Psych: Normal Mood and Affect Result Diagram: 01/21/19 1718 01/21/19 1718 Results 24 hrs Laboratory Tests Test 01/21/19 17:11 01/21/19 17:18 Urine Color COLORLESS Urine Clarity CLEAR Urine pH 7.0 Urine Specific [place] 1.000 Urine Ketones NEGATIVE mg/dL Urine Nitrite NEGATIVE mg/dL Urine Bilirubin NEGATIVE mg/dL Urine Urobilinogen NEGATIVE mg/dL Urine Leukocyte Esterase NEGATIVE Jessy/ul Urine Hemoglobin NEGATIVE mg/dL Urine Glucose NEGATIVE mg/dL Urine Total Protein NEGATIVE mg/dl White Blood Count 5.3 10^3/ul Red Blood Count 5.00 10^6/ul Hemoglobin 15.1 g/dl Hematocrit 43.3 % Mean Corpuscular Volume 86.6 fl Mean Corpuscular Hemoglobin 30.2 pg Mean Corpuscular Hemoglobin Concent 34.9 g/dl Red Cell Distribution Width 12.0 % Platelet Count 250 10^3/UL Mean Platelet Volume 9.8 fl Immature Granulocytes % 0.200 % Neutrophils % 62.7 % Lymphocytes % 28.5 % Monocytes % 6.9 % Eosinophils % 1.1 % Basophils % 0.6 % Nucleated Red Blood Cells % 0.0 /100WBC Immature Granulocytes # 0.010 10^3/ul Neutrophils # 3.4 10^3/ul Lymphocytes # 1.5 10^3/ul Monocytes # 0.4 10^3/ul Eosinophils # 0.1 10^3/ul Basophils # 0.0 10^3/ul Nucleated Red Blood Cells # 0.0 10^3/ul Sodium Level 138 mmol/L Potassium Level 3.6 mmol/L Chloride Level 102 mmol/L Carbon Dioxide Level 27 mmol/L Anion Gap 9 Blood Urea Nitrogen 3 mg/dl Creatinine 0.60 mg/dl Est Glomerular Filtrat Rate mL/min > 60 mL/min Glucose Level 120 mg/dl Calcium Level 9.3 mg/dl Total Bilirubin 0.6 mg/dl Direct Bilirubin 0.00 mg/dl Indirect Bilirubin 0.6 mg/dl Aspartate Amino Transf (AST/SGOT) 36 IU/L Alanine Aminotransferase (ALT/SGPT) 38 IU/L Alkaline Phosphatase 109 IU/L Troponin I < 0.012 ng/ml Total Protein 8.0 g/dl Albumin 4.4 g/dl Globulin 3.60 g/dl Albumin/Globulin Ratio 1.22 Lipase 36 U/L Current Medications Medications Dose Sig/[place] Start Time Status Last (Trade) Ordered Route PRN Stop Time Admin Dose Reason Admin Sodium 1,000 ml @ Q1H STAT 01/21/19 DC 01/21/19 Chloride 1,000 mls/hr IV 17:03 17:50 01/21/19 18:02 Ondansetron 4 mg ONCE STAT 01/21/19 DC 01/21/19 HCl (Zofran IV 17:03 17:50 Inj) 01/21/19 17:06 Famotidine 20 mg ONCE STAT 01/21/19 DC 01/21/19 (Pepcid) PO 19:00 19:13 01/21/19 19:01 40 ml ONCE STAT 01/21/19 DC 01/21/19 Miscellaneous PO 19:00 19:13 Medication 01/21/19 19:01 (Gi Cocktail (2)) 40 mg ONCE ONCE 01/21/19 DC 01/21/19 Pantoprazole PO 19:00 19:13 (Protonix 01/21/19 19:01 Tab) Procedures/MDM EMERGENT LABS AND DIAGNOSTIC STUDIES: Lab Results above were reviewed and interpreted by me. CBC: no anemia or evidence of infection CMP: No evidence of clinically significant electrolyte abnormality, acidosis, renal failure, hypoglycemia, liver disease, or biliary obstruction Lipase: no evidence of pancreatitis Troponin within normal limits, not indicative of cardiac ischemia UA: no evidence of infection 12-lead EKG was interpreted by Jewels Baez MD: Normal Sinus Rhythm with ventricular rate of 84 beats per minute Normal axis Normal intervals No acute ST or T wave changes suggestive of acute ischemia or STEMI. Radiology Results as interpreted by Radiology below were reviewed by Nallely Baez MD: Chest x-ray shows no acute abnormalities ultrasound right upper quadrant shows no acute abnormalities Initial Nursing notes reviewed. Previous Medical Records requested via the Electronic Health Record. EMERGENCY DEPARTMENT COURSE / MEDICAL DECISION MAKING: Patient is presenting with epigastric pain. Vitals are unremarkable. Symptoms are very consistent with gastritis. However an upper abdominal ultrasound was done as well as labs to evaluate for possible cholecystitis, pancreatitis, or an y signs of infection. Labs are unremarkable. Ultrasound did not show any significant abnormalities. No evidence of ACS or pneumonia. Doubt dissection. Patient was treated with a GI cocktail with resolution of his symptoms. He feels much better upon discharge. I did refill his pantoprazole and recommended he follow-up with his primary care doctor within the next few days. Return precautions given. Patient's blood pressure was elevated (>120/80) but appears stable without evidence of hypertensive emergency or urgency. The patient was counseled about the risks of hypertension and urged to pursue outpatient monitoring and therapy within a week with their primary care physician. Departure Diagnosis: Primary Impression: Gastritis Gastritis type: unspecified gastritis Chronicity: chronic Gastritis bleeding: with bleeding Qualified Codes: K29.51 - Unspecified chronic gastritis with bleeding Condition: Stable Patient Instructions: Gi Bleed, Upper (Stable), Gastritis Vs. Ulcer DANTE BAEZ MD January 21, 2019 19:50
[2019-01-21 20:00] VITALS: BP 124/83; PULSE 81; RESP 14
--- NOTE | 2019-01-23 11:58 | RADRPT ---
Vent Rate: 84 bpm RR Interval: 0 msec ME Interval: 136 msec QRS Duration: 88 msec QT Interval: 370 msec QTC Interval: 437 msec P-R-T [place]: 69 - 76 - 68 degrees Normal sinus rhythm with sinus arrhythmia Normal ECG Electronically Signed By: *[facility]
== END 2019-01-21 20:05 | disposition home or self-care (01) ==
LOC: E/R 16:27
DX: K29.51 Unspecified chronic gastritis with bleeding (principal); Z87.891 Personal history of nicotine dependence
CPT/HCPCS: 36415; 71045; 76705; 80053; 81003; 83690; 84484; 85025; 93005; 96361; 96374; J2405; J7030; Z7502; Z7610